=== PATIENT | female | born 1935 | race Caucasian/White ===

== ENCOUNTER 2017-07-30 01:08 | Inpatient (IN) | payer MEDICARE, OTHER ==
[2017-07-30] VITALS (14 sets, daily range): BP systolic 96–149; BP diastolic 56–79; PULSE 69–113; RESP 16–20; TEMP 97.6–98.3; O2SAT 95–100
[~2017-07-30 01:08] MED LIST: 1-ME1LIQ PO; BP MED; FLUC100T41 PO; GLUCTAB PO; HYDR-3580 PO; LIDO5T TOP; METF500 PO; METHO500 PO; PLAV75TA PO; PYRI200T4 PO; SULF1TAB47 PO; Z.0.UNKNOWN
[2017-07-30] MEDS ORDERED: IODIXANOL 320 MG/ML 10 ML VIAL (for Rad CT) IVCONTRAST ONE (01:09)
--- NOTE | 2017-07-30 02:46 | PD ---
HPI Chief Complaint: General Weakness Time Seen by Provider: 02:41 Travel History International Travel<30 days: No Contact w/Intl Traveler<30days: No Traveled to known affect area: No History of Present Illness HPI The patient is a 81-year-old female who presents to the emergency department via EMS for altered mental status. According EMS the patient was at home during the day, and her trailer, when family noticed that she was sleeping more than normal. He also stated the patient had fallen several times and had bruising to the left foot, right ankle, mid right back. EMS states that family noticed that the patient had an altered mental status. Upon arrival the patient denies any complaints, however, she is only oriented to person and location, not month, year, or law firm partner. She denies any complaints upon arrival. However, she is a poor and somewhat limited historian. PFSH Past Medical History Medical History: Unable to Obtain Blood Disorders: No Anxiety: Yes Depression: No Cancer: No Cardiovascular Problems: No Diabetes: No Diminished Hearing: No Genitourinary: No Immune Disorder: No Musculoskeletal: Yes (BACK) Psychiatric: Yes Reproductive: No Respiratory: No Immunizations Current: Yes : 2 Para: 2 Past Surgical History Hysterectomy: Yes (PARTIAL 1960?) Tonsillectomy: Yes Other Surgery: Yes (CYST REMOVED BILAT BREAST) Social History Alcohol Use: No Tobacco Use: No Substance Use: No Allergies-Medications (Allergen,Severity, Reaction): Coded Allergies: metronidazole (Unverified Allergy, Severe, Rash, 07/30/17) Sulfa (Sulfonamide Antibiotics) (Unverified Allergy, Mild, rash, 07/30/17) amoxicillin (Unverified Allergy, Mild, rash, 07/30/17) Reported Meds & Prescriptions Reported Meds & Active Scripts Active Reported Biotin 5 Mg Cap 5 Mg PO Levothyroxine (Levothyroxine Sodium) 50 Mcg Tab 50 Mcg PO DAILY Miralax Powder (Polyethylene Glycol 3350 Powder) 17 Gm Powd 17 Gm PO DAILY Mix and dissolve one measuring cap-ful (17 grams) in water or juice. Citalopram (Citalopram Hydrobromide) 40 Mg Tab 40 Mg PO DAILY Hydrocodone-Acetaminophen 10-325 mg Tab 1 Tab PO Q6H PRN Clopidogrel (Clopidogrel Bisulfate) 75 Mg Tab 75 Mg PO DAILY Gabapentin 300 Mg Cap 300 Mg PO BID Metformin (Metformin HCl) 500 Mg Tab 500 Mg PO DAILY With a meal Metoprolol Tartrate 100 Mg Tab 100 Mg PO DAILY Amlodipine (Amlodipine Besylate) 10 Mg Tab 10 Mg PO DAILY Aspirin 81 Mg Chew 81 Mg CHEW DAILY Review of Systems ROS Limitations: Clinical Condition, Altered Mental Status Except as stated in HPI: all other systems reviewed are Neg Cardiovascular: No: Chest Pain or Discomfort Respiratory: No: Shortness of Breath Gastrointestinal: No: Nausea, Vomiting, Abdominal Pain Genitourinary: No: Nocturia Musculoskeletal: Positive: Weakness Neurologic: Positive: Change in Mentation Physical Exam Narrative GENERAL: Awake, alert, pleasant 81-year-old female who appears her stated age but is a poor historian. SKIN: Tenting noted to the skin. Old appearing chronic skin changes to lower extremities noted. Ecchymosis noted left foot and edema noted to the right lateral malleus. HEAD: Atraumatic. Normocephalic. EYES: Pupils equal and round. No scleral icterus. No injection or drainage. ENT: No nasal bleeding or discharge. Dry mucous membranes. Upper dentures in place. NECK: Trachea midline. No JVD. CARDIOVASCULAR: Regular, tachycardic with a heart rate of 1:15. RESPIRATORY: No accessory muscle use. Clear to auscultation. Breath sounds equal bilaterally. GASTROINTESTINAL: Abdomen soft, non-tender, nondistended. No rebound tenderness. MUSCULOSKELETAL: Ecchymosis noted over the lateral distal left foot. Ecchymosis and edema noted of the right lateral malleus. Chronic skin changes noted to the anterior aspect the lower extremity is bilateral. Back: Ecchymosis noted to the right mid back and flank. NEUROLOGICAL: Awake, eyes: Open, answers questions, but is only oriented to person and place, not current month, year, or law firm partner. Follow simple commands. PSYCHIATRIC: Appears confused. Data Data Last Documented VS Vital Signs Date Time Temp Pulse Resp B/P (MAP) Pulse Ox O2 Delivery O2 Flow Rate FiO2 07/30/17 02:41 113 16 113/72 (86) 100 Room Air Orders Orders Chest, Single Ap (07/30/17 ) Foot, Limited (2vws) (07/30/17 ) Ankle, Limited (Ap&Lat) (07/30/17 ) Ct Brain W/O Iv Contrast(Rout) (07/30/17 ) Ct Abd/Pel W Iv Contrast(Rout) (07/30/17 ) Lactic Acid (07/30/17 01:24) Complete Blood Count With Diff (07/30/17 01:24) Alcohol (Ethanol) (07/30/17 01:24) Creatine Kinase (Cpk) (07/30/17 01:24) Comprehensive Metabolic Panel (07/30/17 01:24) Lipase (07/30/17 01:24) Troponin I (07/30/17 01:24) B-Type Natriuretic Peptide (07/30/17 01:24) Urinalysis - C+S If Indicated (07/30/17 01:24) CKMB (07/30/17 01:24) CKMB% (07/30/17 01:24) Blood Culture (07/30/17 01:24) Blood Culture (07/30/17 01:24) Splinting (07/30/17 ) Iodixanol 320 Inj (Rad Ct) (Visipaque 32 (07/30/17 01:09) Admit Order (Ed Use Only) (07/30/17 04:12) Aspirin Chew (Aspirin Chew) (07/30/17 04:15) Labs Laboratory Tests Test 07/30/17 01:24 07/30/17 02:08 White Blood Count 11.0 TH/MM3 Red Blood Count 4.19 MIL/MM3 Hemoglobin 13.0 GM/DL Hematocrit 37.5 % Mean Corpuscular Volume 89.3 FL Mean Corpuscular Hemoglobin 31.0 PG Mean Corpuscular Hemoglobin Concent 34.7 % Red Cell Distribution Width 16.6 % Platelet Count 256 TH/MM3 Mean Platelet Volume 7.1 FL Neutrophils (%) (Auto) 79.3 % Lymphocytes (%) (Auto) 12.1 % Monocytes (%) (Auto) 8.2 % Eosinophils (%) (Auto) 0.2 % Basophils (%) (Auto) 0.2 % Neutrophils # (Auto) 8.7 TH/MM3 Lymphocytes # (Auto) 1.3 TH/MM3 Monocytes # (Auto) 0.9 TH/MM3 Eosinophils # (Auto) 0.0 TH/MM3 Basophils # (Auto) 0.0 TH/MM3 CBC Comment DIFF FINAL Differential Comment Blood Urea Nitrogen 38 MG/DL Creatinine 1.38 MG/DL Random Glucose 108 MG/DL Total Protein 6.6 GM/DL Albumin 3.2 GM/DL Calcium Level 8.4 MG/DL Alkaline Phosphatase 83 U/L Aspartate Amino Transf (AST/SGOT) 32 U/L Alanine Aminotransferase (ALT/SGPT) 19 U/L Total Bilirubin 0.9 MG/DL Sodium Level 121 MEQ/L Potassium Level 4.0 MEQ/L Chloride Level 83 MEQ/L Carbon Dioxide Level 20.7 MEQ/L Anion Gap 17 MEQ/L Estimat Glomerular Filtration Rate 37 ML/MIN Lactic Acid Level 0.8 mmol/L Total Creatine Kinase 210 U/L Creatine Kinase MB 8.6 NG/ML Creatine Kinase MB % 4.1 % Troponin I 0.22 NG/ML B-Type Natriuretic Peptide 822 PG/ML Lipase 135 U/L Ethyl Alcohol Level LESS THAN 3 MG/DL Urine Color YELLOW Urine Turbidity CLEAR Urine pH 5.5 Urine Specific [place] 1.015 Urine Protein 30 mg/dL Urine Glucose (UA) NEG mg/dL Urine Ketones 10 mg/dL Urine Occult Blood NEG Urine Nitrite NEG Urine Bilirubin NEG Urine Urobilinogen LESS THAN 2.0 MG/DL Urine Leukocyte Esterase NEG Urine RBC 1 /hpf Urine WBC 2 /hpf Urine Squamous Epithelial Cells <1 /hpf Urine Hyaline Casts 1 /lpf Urine Mucus FEW /lpf Microscopic Urinalysis Comment CATH-CULT NOT IND MDM Medical Decision Making Medical Screen Exam Complete: Yes Emergency Medical Condition: Yes Medical Record Reviewed: Yes Interpretation(s) The patient's EKG reveals Q waves in lead 2, 3, and aVF. The patient also has Q waves in lead V2 MB [address] elevations noted in V2 and V3. Laboratory Tests Test 07/30/17 01:24 07/30/17 02:08 White Blood Count 11.0 TH/MM3 Red Blood Count 4.19 MIL/MM3 Hemoglobin 13.0 GM/DL Hematocrit 37.5 % Mean Corpuscular Volume 89.3 FL Mean Corpuscular Hemoglobin 31.0 PG Mean Corpuscular Hemoglobin Concent 34.7 % Red Cell Distribution Width 16.6 % Platelet Count 256 TH/MM3 Mean Platelet Volume 7.1 FL Neutrophils (%) (Auto) 79.3 % Lymphocytes (%) (Auto) 12.1 % Monocytes (%) (Auto) 8.2 % Eosinophils (%) (Auto) 0.2 % Basophils (%) (Auto) 0.2 % Neutrophils # (Auto) 8.7 TH/MM3 Lymphocytes # (Auto) 1.3 TH/MM3 Monocytes # (Auto) 0.9 TH/MM3 Eosinophils # (Auto) 0.0 TH/MM3 Basophils # (Auto) 0.0 TH/MM3 CBC Comment DIFF FINAL Differential Comment Blood Urea Nitrogen 38 MG/DL Creatinine 1.38 MG/DL Random Glucose 108 MG/DL Total Protein 6.6 GM/DL Albumin 3.2 GM/DL Calcium Level 8.4 MG/DL Alkaline Phosphatase 83 U/L Aspartate Amino Transf (AST/SGOT) 32 U/L Alanine Aminotransferase (ALT/SGPT) 19 U/L Total Bilirubin 0.9 MG/DL Sodium Level 121 MEQ/L Potassium Level 4.0 MEQ/L Chloride Level 83 MEQ/L Carbon Dioxide Level 20.7 MEQ/L Anion Gap 17 MEQ/L Estimat Glomerular Filtration Rate 37 ML/MIN Lactic Acid Level 0.8 mmol/L Total Creatine Kinase 210 U/L Creatine Kinase MB 8.6 NG/ML Creatine Kinase MB % 4.1 % Troponin I 0.22 NG/ML B-Type Natriuretic Peptide 822 PG/ML Lipase 135 U/L Ethyl Alcohol Level LESS THAN 3 MG/DL Urine Color YELLOW Urine Turbidity CLEAR Urine pH 5.5 Urine Specific [place] 1.015 Urine Protein 30 mg/dL Urine Glucose (UA) NEG mg/dL Urine Ketones 10 mg/dL Urine Occult Blood NEG Urine Nitrite NEG Urine Bilirubin NEG Urine Urobilinogen LESS THAN 2.0 MG/DL Urine Leukocyte Esterase NEG Urine RBC 1 /hpf Urine WBC 2 /hpf Urine Squamous Epithelial Cells <1 /hpf Urine Hyaline Casts 1 /lpf Urine Mucus FEW /lpf Microscopic Urinalysis Comment CATH-CULT NOT IND CT the brain reveals no acute hemorrhage, mass, or evidence of infarction. Atrophy and chronic small vessel ischemic change. CT of the abdomen and pelvis reveals no acute visceral injury. Healing fractures of the anterior right acetabulum and right inferior pubic rami. X-ray left foot reveals negative limited to the exam. X-ray right ankle reveals subtle nondisplaced fracture through the distal fibula. Chest x-ray reveals no acute disease. Differential Diagnosis Differential diagnosis includes STEMI, post STEMI, rhabdomyolysis, dehydration, subdural hemorrhage, ankle fracture, foot fracture, intra-abdominal injury, delirium, medication side effect, acute kidney injury, rhabdomyolysis. Narrative Course IV was established, labs are drawn and sent, and the patient was placed on cardiac telemetry monitoring and continuous pulse oximetry monitoring. EKG was ordered and interpreted. The patient had ST elevations noted in V2 and V3 with Q waves in lead 2, 3, aVF, V2, and V3. I discussed the EKG with the on-call bag end sewer, Dr. Hernandez, at 1:38 AM. After discussion it appears the patient had an MA, subacute, possibly the last several weeks. She is currently chest pain-free and has evidence of trauma, therefore, will undergo workup for possible bleeding intra-abdominally and intracranially. After discussion it was agreed the patient would receive aspirin if the workup is negative, but we will hold anticoagulants including Lovenox and heparin. The patient's sodium is low 121. Troponin was elevated 0.22. Creatinine is mildly elevated. CT the brain is unremarkable for any acute hemorrhage. CT the abdomen and pelvis reveals healing right acetabulum and pubic gram I fractures but no acute intra- abdominal bleed. Therefore, the patient was administered aspirin orally. X- ray left foot is negative. Chest x-rays unremarkable. The patient appears to have possibly a subacute cardiac event, may benefit from cardiac evaluation after patient has been stabilized. Sodium was low at 121 and patient is altered , therefore, patient will go to the intensive care unit overnight. I discussed the patient with Dr. Goldman the care coordination manager who agrees with admission. Critical Care Narrative Aggregate critical care time was 35 minutes. Time to perform other separately billable procedures was not included in the critical care time. My time did not include minutes spent treating any other patients simultaneously or on activities that did not directly contribute to the patient's treatment. The services I provided to this patient were to treat and/or prevent clinically significant deterioration that could result in: STEMI, cardiac ischemia, electrolyte abnormality. I provided critical care services requiring my management, as noted below: Chart data review, documentation time, medication orders and management, vital sign assessments/reviewing monitor data, ordering and reviewing lab tests, ordering and interpreting/reviewing x-rays and diagnostic studies, care of the patient and discussion of the patient with the admitting physicians. Physician Communication Physician Communication I discussed the patient with Dr. Goldman who agrees with admission. Diagnosis Primary Impression: NSTEMI (non-ST elevated myocardial infarction) Additional Impressions: Hyponatremia Fracture of right ankle, lateral malleolus Qualified Codes: S82.64XA - Nondisplaced fracture of lateral malleolus of right fibula, initial encounter for closed fracture Acute kidney injury Admitting Information Admitting Physician Requests: Admit Condition: Serious Jude Bryant MD Jul 30, 2017 02:46
[2017-07-30 02:49] LABS: AUTOMATED NEUTROPHIL # 8.7 TH/MM3 (1.8-7.7); BASOPHIL % 0.2 % (0.0-2.0); EOSINOPHIL % 0.2 % (0.0-4.0); HEMATOCRIT 37.5 % (35.0-46.0); LYMPH % 12.1 % (9.0-44.0); LYMPHOCYTE # 1.3 TH/MM3 (1.0-4.8); MEAN CELL VOLUME 89.3 FL (80.0-100.0); MEAN CORPUSCULAR HGB CONC 34.7 % (32.0-36.0); MEAN PLATELET VOLUME 7.1 FL (7.0-11.0); MONO % 8.2 % (0.0-8.0); MONOCYTE # 0.9 TH/MM3 (0-0.9); NEUT % 79.3 % (16.0-70.0); PLATELET COUNT 256 TH/MM3 (150-450); RED BLOOD COUNT 4.19 MIL/MM3 (4.00-5.30); RED CELL DISTRIBUTION WIDTH 16.6 % (11.6-17.2)
[2017-07-30 02:52] LABS: ALBUMIN 3.2 GM/DL (3.4-5.0); ALKALINE PHOSPHATASE 83 U/L (45-117); ALT (GPT) 19 U/L (10-53); AST (GOT) 32 U/L (15-37); BICARBONATE 20.7 MEQ/L (21.0-32.0); BLOOD UREA NITROGEN 38 MG/DL (7-18); CALCIUM 8.4 MG/DL (8.5-10.1); CHLORIDE 83 MEQ/L (98-107); CREATININE 1.38 MG/DL (0.50-1.00); GLOMERULAR FILTRATION RATE 37 ML/MIN (>89); GLUCOSE,RANDOM 108 MG/DL (74-106); TOTAL BILIRUBIN ADULT 0.9 MG/DL (0.2-1.0); TOTAL PROTEIN 6.6 GM/DL (6.4-8.2); TROPONIN I 0.22 NG/ML (0.02-0.05)
[2017-07-30 02:55] LABS: SODIUM (NA) 121 MEQ/L (136-145)
--- NOTE | 2017-07-30 02:58 | RADRPT ---
EXAM DATE/TIME: 07/30/2017 02:05 [facility] COMPARISON: No previous studies available for comparison. INDICATIONS : Patient with altered mental status who has possibly fallen because of bruising to posterior right ant st. MEDICAL HISTORY : None. SURGICAL HISTORY : None. ENCOUNTER: Initial ACUITY: 1 day PAIN SCORE: Non-responsive. LOCATION: Right chest FINDINGS: A single view of the chest demonstrates the lungs to be symmetrically aerated without evidence of mas s, infiltrate or effusion. The cardiomediastinal contours are unremarkable. Atherosclerotic calcific ations are present in the aorta. There are stimulator leads project over the mid thoracic spine. Ther e is a moderate compression fracture deformity also noted in the mid thoracic spine. Osseous structur es are intact. CONCLUSION: No acute disease. Dayne Jordan MD on July 30, 2017 at 2:55 Board Certified Radiologist. This report was verified electronically.
--- NOTE | 2017-07-30 03:00 | RADRPT ---
EXAM DATE/TIME: 07/30/2017 02:11 [facility] COMPARISON: No previous studies available for comparison. INDICATIONS : Patient with altered mental status who has possibly fallen because of bruising to right ankle. MEDICAL HISTORY : None. SURGICAL HISTORY : None. ENCOUNTER: Initial ACUITY: 1 day PAIN SCORE: Non-responsive. LOCATION: Right ankle FINDINGS: Limited AP and lateral views of the left ankle were obtained and not a standard 3 view trauma series limiting the sensitivity. There is a subtle nondisplaced fracture through the distal fibula beginning just below above the level of the ankle mortise. There is diffuse osteopenia. The ankle mortise is i ntact. There is a small spur off the inferior calcaneus. There is soft tissue swelling over the later al malleolus. CONCLUSION: 1. Subtle nondisplaced fracture through the distal fibula. Dayne Jordan MD on July 30, 2017 at 2:56 Board Certified Radiologist. This report was verified electronically.
--- NOTE | 2017-07-30 03:02 | RADRPT ---
EXAM DATE/TIME: 07/30/2017 02:13 [facility] COMPARISON: No previous studies available for comparison. INDICATIONS : Patient with altered mental status who has possibly fallen because of bruising to left foot and leg. MEDICAL HISTORY : None. SURGICAL HISTORY : None. ENCOUNTER: Initial ACUITY: 1 day PAIN SCORE: Non-responsive. LOCATION: Left foot FINDINGS: A limited two-view examination of the left foot was obtained and not a standard 3 view trauma series limiting the sensitivity. There is diffuse osteopenia with no definite acute fracture or malalignment . There is a small spur off the inferior calcaneus. No focal soft tissue abnormality is identified. M ild osteoarthritic changes present. CONCLUSION: Negative limited two-view exam . Dayne Jordan MD on July 30, 2017 at 2:58 Board Certified Radiologist. This report was verified electronically.
[2017-07-30 03:24] LABS: BILIRUBIN, URINE NEG (NEG); BLOOD, URINE NEG (NEG); GLUCOSE,URINE NEG (NEG); HYALINE CAST, URINE 1 /lpf (RARE); KETONE, URINE 10 mg/dL (NEG); MUCUS URINE FEW /lpf (OCC); NITRITE,URINE NEG (NEG); PH, URINE 5.5 (5.0-8.5); SQUAMOUS EPITHELIAL CELL URINE <1 /hpf (0-5); URINE COLOR YELLOW (YELLW/STRAW); URINE LEUKOCYTE ESTERASE NEG (NEG)
[2017-07-30] MEDS ORDERED: AMLO10TA2 PO (03:38)
[2017-07-30] MEDS ORDERED: CITA40TA4 PO (03:38)
[2017-07-30] MEDS ORDERED: LEVO50TA4 PO (03:38)
[2017-07-30] MEDS ORDERED: CLOP75TA PO (03:38)
[2017-07-30] MEDS ORDERED: BIOTCAP PO (03:38)
[2017-07-30] MEDS ORDERED: METO100T PO (03:38)
[2017-07-30] MEDS ORDERED: ASPI-516 CHEW (03:38)
[2017-07-30] MEDS ORDERED: GABA300C5 PO (03:38)
[2017-07-30] MEDS ORDERED: MIRA3350 PO (03:38)
[2017-07-30] MEDS ORDERED: HYDR-3583 PO (03:38)
[2017-07-30] MEDS ORDERED: METF500T PO (03:38)
--- NOTE | 2017-07-30 03:47 | RADRPT ---
EXAM DATE/TIME: 07/30/2017 03:20 [facility] COMPARISON: No previous studies available for comparison. INDICATIONS : Altered mental status. RADIATION DOSE: 48.43 CTDIvol (mGy) MEDICAL HISTORY : Cerebrovascular disease. Cardiovascular disease SURGICAL HISTORY : Coronary artery stent. Appendectomy.Hysterectomy. ENCOUNTER: Initial ACUITY: 1 day PAIN SCALE: 0/10 LOCATION: cranial TECHNIQUE: Multiple contiguous axial images were obtained of the head. Using automated exposure control and adj ustment of the mA and/or kV according to patient size, radiation dose was kept as low as reasonably a chievable to obtain optimal diagnostic quality images. DICOM format image data is available electro nically for review and comparison. FINDINGS: CEREBRUM: The ventricles are normal for with moderate atrophy and extensive chronic small vessel ischemic lane e. No evidence of midline shift, mass lesion, hemorrhage or acute infarction. No extra-axial fluid c ollections are seen. POSTERIOR FOSSA: The cerebellum and brainstem are intact. The 4th ventricle is midline. The cerebellopontine angle i s unremarkable. EXTRACRANIAL: The visualized portion of the orbits is intact. SKULL: The calvaria is intact. No evidence of skull fracture. CONCLUSION: 1. No acute hemorrhage, mass or evidence of infarction. 2. Atrophy and chronic small vessel ischemic change. Dayne Jordan MD on July 30, 2017 at 3:43 Board Certified Radiologist. This report was verified electronically.
--- NOTE | 2017-07-30 03:52 | RADRPT ---
EXAM DATE/TIME: 07/30/2017 03:24 [facility] COMPARISON: No previous studies available for comparison. INDICATIONS : Fall. Left sided abdomen pain. IV CONTRAST: 50 cc Visipaque (iodixanol) IV ORAL CONTRAST: No oral contrast ingested. RADIATION DOSE: 4.50 CTDIvol (mGy) MEDICAL HISTORY : Cardiovascular disease. Cerebrovascular disease. SURGICAL HISTORY : Coronary artery stent. Appendectomy.Hysterectomy. ENCOUNTER: Initial ACUITY: 1 day PAIN SCALE: 0/10 LOCATION: Left abdomen TECHNIQUE: Volumetric scanning of the abdomen and pelvis was performed. Using automated exposure control and ad justment of the mA and/or kV according to patient size, radiation dose was kept as low as reasonably achievable to obtain optimal diagnostic quality images. DICOM format image data is available electro nically for review and comparison. FINDINGS: LOWER LUNGS: The visualized lower lungs are clear. LIVER: Homogeneous density without lesion. There is no dilation of the biliary tree. No calcified gallston es. The gallbladder is unremarkable in appearance. SPLEEN: Normal size without lesion. PANCREAS: Within normal limits. KIDNEYS: Normal in size and shape. There is no mass, stone or hydronephrosis. ADRENAL GLANDS: Within normal limits. VASCULAR: Atherosclerotic changes are noted with dilatation and calcification. There is no focal aneurysm. BOWEL/MESENTERY: The stomach, small bowel, and colon demonstrate no acute abnormality. There is no free intraperitone al air or fluid. ABDOMINAL WALL: Within normal limits. RETROPERITONEUM: There is no lymphadenopathy. BLADDER: No wall thickening or mass. REPRODUCTIVE: Within normal limits. INGUINAL: There is no lymphadenopathy or hernia. MUSCULOSKELETAL: Osteopenia, degenerative change and mild scoliosis are present. There is a healing fracture deformity of the right inferior pubic rami. There is sclerosis and deformity of the anterior right acetabulum. A neuromuscular stimulation device is present with leads in the mid thoracic spine. CONCLUSION: 1. No acute visceral injury. 2. Healing fractures of the anterior right acetabulum and right inferior pubic rami. Dayne Jordan MD on July 30, 2017 at 3:44 Board Certified Radiologist. This report was verified electronically.
[2017-07-30] MEDS ORDERED: ASPIRIN 81 MG CHEW TAB CHEW ONE (04:15)
[2017-07-30] MEDS ORDERED: ACETAMINOPHEN/HYDROcodone 325 MG/10 MG TAB PO PRN (05:30)
[2017-07-30] MEDS ORDERED: MAGNESIUM HYDROXIDE SUSP 30 ML CUP PO PRN (05:30)
[2017-07-30] MEDS ORDERED: LACTULOSE SYRUP 20 GM/30 ML CUP PO PRN (05:30)
[2017-07-30] MEDS ORDERED: ONDANSETRON HCL 4 MG/2 ML VIAL IV PUSH PRN (05:30)
[2017-07-30] MEDS ORDERED: ACETAMINOPHEN 325 MG TAB PO PRN (05:30)
[2017-07-30] MEDS ORDERED: BISACODYL 10 MG SUPP RECTAL PRN (05:30)
[2017-07-30] MEDS ORDERED: CHLORHEXIDINE GLUCONATE 2 % 1 PACK (2 CLOTHS) TOP PRN (05:30)
[2017-07-30] MEDS ORDERED: RESP: ALBUTEROL 2.5 MG/IPRATROPIUM 0.5 MG NEB (PRN) INH (05:30)
[2017-07-30] MEDS ORDERED: HEPARIN-D5W 25,000 U/250 ML 250 ML IV PRN (05:30)
[2017-07-30] MEDS ORDERED: SODIUM CHLORIDE 0.9% FLUSH 10 ML FLUSH IV FLUSH PRN (05:30)
[2017-07-30] MEDS ORDERED: MISCELLANEOUS NURSING INFORMATION XX SCH (05:30)
[2017-07-30] MEDS ORDERED: SENNOSIDES 8.6 MG TAB PO PRN (05:30)
[2017-07-30] MEDS ORDERED: HEPARIN SODIUM - IV 10,000 UNITS/10 ML VIAL IV PUSH ONE (05:30)
[2017-07-30] MEDS ORDERED: TEMAZEPAM 15 MG CAP PO PRN (05:30)
--- NOTE | 2017-07-30 05:56 | HHI.HP ---
HPI Service Critical Care Medicine Primary Care Physician No Primary Care Physician Admission Diagnosis NSTEMI, hyponatremia, right ankle fracture, altered mental status Diagnosis: Travel History International Travel<30 Days: No Contact w/Intl Traveler <30 Da: No Traveled to Known Affected Are: No History of Present Illness 81-year-old female presents for altered mental status. According EMS the patient was at home during the day, and her trailer, when family noticed that she was sleeping more than normal. The patient had also fallen several times and had bruising to the left foot, right ankle, mid right back. EMS states that family noticed that the patient had an altered mental status. Upon arrival the patient denied any complaints, however, she is only oriented to person and location, not month, year, or brokerage office manager. She is a poor and somewhat limited historian. The patient had ST elevations noted in V2 and V3 with Q waves in lead 2, 3, aVF, V2, and V3. Dr. Bryant from emergency department discussed the EKG with the on-call family assessment worker, Dr. Hernandez. Per chart documentation the patient had an [place], subacute, possibly the last several weeks. She is currently chest pain-free and has evidence of trauma, and it was agreed the patient would receive aspirin but we will hold anticoagulants including Lovenox and heparin. Review of Systems ROS Limitations: Poor Historian Constitutional: DENIES: Diaphoretic episodes, Fatigue, Fever, Weight gain, Weight loss, Chills, Dizziness, Change in appetite, Night Sweats Endocrine: DENIES: Abnorml menstrual pattern, Heat/cold intolerance, Polydipsia , Polyuria, Polyphagia Eyes: DENIES: Blurred vision, Diplopia, Eye inflammation, Eye pain, Vision loss , Photosensitivity, Double Vision Ears, nose, mouth, throat: DENIES: Tinnitus, Hearing loss, Vertigo, Nasal discharge, Oral lesions, Throat pain, Hoarseness, Ear Pain, Running Nose, Epistaxis, Sinus Pain, Toothache, Odynophagia Respiratory: DENIES: Apneas, Cough, Snoring, Wheezing, Hemoptysis, Sputum production, Shortness of breath Cardiovascular: DENIES: Chest pain, Palpitations, Syncope, Dyspnea on Exertion , PND, Lower Extremity Edema, Orthopnea, Claudication Gastrointestinal: DENIES: Abdominal pain, Black stools, Bloody stools, Constipation, Diarrhea, Nausea, Vomiting, Difficulty Swallowing, Anorexia Genitourinary: DENIES: Abnormal vaginal bleeding, Dysmenorrhea, Dyspareunia, Sexual dysfunction, Urinary frequency, Urinary incontinence, Urgency, Hematuria , Dysuria, Nocturia, Vaginal discharge Musculoskeletal: COMPLAINS OF: Joint pain, DENIES: Muscle aches, Stiffness, Joint Swelling, Back pain, Neck pain Integumentary: DENIES: Abnormal pigmentation, Pruritus, Rash, Nail changes, Breast masses, Breast skin changes, Nipple discharge Hematologic/lymphatic: DENIES: Bruising, Lymphadenopathy Immunologic/allergic: DENIES: Eczema, Urticaria Neurologic: COMPLAINS OF: Abnormal gait, DENIES: Headache, Localized weakness, Paresthesias, Seizures, Speech Problems, Tremor, Poor Balance Psychiatric: DENIES: Anxiety, Confusion, Mood changes, Depression, Hallucinations, Agitation, Suicidal Ideation, Homicidal Ideation, Delusions Past Family Social History Allergies: Coded Allergies: metronidazole (Unverified Allergy, Severe, Rash, 07/30/17) Sulfa (Sulfonamide Antibiotics) (Unverified Allergy, Mild, rash, 07/30/17) amoxicillin (Unverified Allergy, Mild, rash, 07/30/17) Past Medical History Intractable back pain, compression deformities T6, T11, T12 and L1, L5. Narcotic abuse. Multiple admission for narcotic overdose. Depression. Urinary tract infection, positive for yeast. Hypertension, appears to be stable. Diabetes type 2. Degenerative disk disease. Previous falls. Previous fracture ankle. Past Surgical History Bladder suspension. Partial hysterectomy. Tonsillectomy. Implantation of neuro stimulator 06/2011. She had cysts removed from her breasts. Reported Medications Reported Meds & Active Scripts Active Reported Biotin 5 Mg Cap 5 Mg PO Levothyroxine (Levothyroxine Sodium) 50 Mcg Tab 50 Mcg PO DAILY Miralax Powder (Polyethylene Glycol 3350 Powder) 17 Gm Powd 17 Gm PO DAILY Mix and dissolve one measuring cap-ful (17 grams) in water or juice. Citalopram (Citalopram Hydrobromide) 40 Mg Tab 40 Mg PO DAILY Hydrocodone-Acetaminophen 10-325 mg Tab 1 Tab PO Q6H PRN Gabapentin 300 Mg Cap 300 Mg PO BID Metformin (Metformin HCl) 500 Mg Tab 500 Mg PO DAILY With a meal Metoprolol Tartrate 100 Mg Tab 100 Mg PO DAILY Amlodipine (Amlodipine Besylate) 10 Mg Tab 10 Mg PO DAILY Aspirin 81 Mg Chew 81 Mg CHEW DAILY Active Ordered Medications Current Medications Medications (Trade) Dose Ordered Sig/Rachel Route PRN Reason Start Time Stop Time Status Last Admin Dose Admin Amlodipine Besylate (Norvasc) 10 mg DAILY PO 07/30/17 09:00 UNV Aspirin (Aspirin Chew) 81 mg DAILY CHEW 07/30/17 09:00 UNV Citalopram Hydrobromide (CeleXA) 40 mg DAILY PO 07/30/17 09:00 UNV Clopidogrel Bisulfate (Plavix) 75 mg DAILY PO 07/30/17 09:00 UNV Gabapentin (Neurontin) 300 mg BID PO 07/30/17 09:00 UNV Acetaminophen/ Hydrocodone Bitart (Amonate 10-325 Mg) 1 tab Q6H PRN PO PAIN 07/30/17 05:30 UNV Levothyroxine Sodium (Synthroid) 50 mcg DAILY PO 07/30/17 09:00 UNV Metoprolol Tartrate (Lopressor) 100 mg DAILY PO 07/30/17 09:00 UNV Sodium Chloride (NS Flush) 2 ml UNSCH PRN IV FLUSH FLUSH AFTER USING IV ACCESS 07/30/17 05:30 UNV Sodium Chloride (NS Flush) 2 ml BID IV FLUSH 07/30/17 09:00 UNV Albuterol/ Ipratropium (Duoneb Neb) 1 ampule Q2HR NEB PRN INH WHEEZING 07/30/17 05:30 UNV Miscellaneous Information 1 [id number] XX 07/30/17 05:30 UNV Family History Mother had diabetes and father was an alcoholic and from complications from alcohol use. Social History Patient is , she has one daughter and one child who . She was a half a pack a day smoker for many years. No alcohol use. Physical Exam Vital Signs Vital Signs Date Time Temp Pulse Resp B/P (MAP) Pulse Ox O2 Delivery O2 Flow Rate FiO2 07/30/17 02:41 113 16 113/72 (86) 100 Room Air Physical Exam GENERAL: Well-nourished, well-developed patient. SKIN: Warm and dry. HEAD: Normocephalic. EYES: No scleral icterus. No injection or drainage. NECK: Supple, trachea midline. No JVD or lymphadenopathy. CARDIOVASCULAR: Regular rate and rhythm without murmurs, gallops, or rubs. RESPIRATORY: Breath sounds equal bilaterally. No accessory muscle use. GASTROINTESTINAL: Abdomen soft, non-tender, nondistended. MUSCULOSKELETAL: Ecchymosis noted over the lateral distal left foot. Ecchymosis and edema noted of the right lateral malleus. Chronic skin changes noted to the anterior aspect the lower extremity is bilateral. Back: Ecchymosis noted to the right mid back and flank. NEUROLOGICAL: Awake, eyes: Open, answers questions, but is only oriented to person and place, not current month, year, or brokerage office manager. Follow simple commands. Laboratory Laboratory Tests Test 07/30/17 01:24 07/30/17 02:08 White Blood Count 11.0 Red Blood Count 4.19 Hemoglobin 13.0 Hematocrit 37.5 Mean Corpuscular Volume 89.3 Mean Corpuscular Hemoglobin 31.0 Mean Corpuscular Hemoglobin Concent 34.7 Red Cell Distribution Width 16.6 Platelet Count 256 Mean Platelet Volume 7.1 Neutrophils (%) (Auto) 79.3 Lymphocytes (%) (Auto) 12.1 Monocytes (%) (Auto) 8.2 Eosinophils (%) (Auto) 0.2 Basophils (%) (Auto) 0.2 Neutrophils # (Auto) 8.7 Lymphocytes # (Auto) 1.3 Monocytes # (Auto) 0.9 Eosinophils # (Auto) 0.0 Basophils # (Auto) 0.0 CBC Comment DIFF FINAL Differential Comment Blood Urea Nitrogen 38 Creatinine 1.38 Random Glucose 108 Total Protein 6.6 Albumin 3.2 Calcium Level 8.4 Alkaline Phosphatase 83 Aspartate Amino Transf (AST/SGOT) 32 Alanine Aminotransferase (ALT/SGPT) 19 Total Bilirubin 0.9 Sodium Level 121 Potassium Level 4.0 Chloride Level 83 Carbon Dioxide Level 20.7 Anion Gap 17 Estimat Glomerular Filtration Rate 37 Lactic Acid Level 0.8 Total Creatine Kinase 210 Creatine Kinase MB 8.6 Creatine Kinase MB % 4.1 Troponin I 0.22 B-Type Natriuretic Peptide 822 Lipase 135 Ethyl Alcohol Level LESS THAN 3 Urine Color YELLOW Urine Turbidity CLEAR Urine pH 5.5 Urine Specific Blessing 1.015 Urine Protein 30 Urine Glucose (UA) NEG Urine Ketones 10 Urine Occult Blood NEG Urine Nitrite NEG Urine Bilirubin NEG Urine Urobilinogen LESS THAN 2.0 Urine Leukocyte Esterase NEG Urine RBC 1 Urine WBC 2 Urine Squamous Epithelial Cells <1 Urine Hyaline Casts 1 Urine Mucus FEW Microscopic Urinalysis Comment CATH-CULT NOT IND Date/Time Source Procedure Growth Status 07/30/17 01:30 Blood Peripheral Aerobic Blood Culture Pending Received 3 01:30 Blood Peripheral Anaerobic Blood Culture Pending Received Result Diagram: 07/30/174 07/30/17 0124 Caprini VTE Risk Assessment Caprini VTE Risk Assessment: Mod/High Risk (score >= 2) Caprini Risk Assessment Model Point Value = 1 Point Value = 2 Point Value = 3 Point Value = 5 Age 41-60 Minor surgery BMI > 25 kg/m2 Swollen legs Varicose veins or History of unexplained or recurrent spontaneous Oral contraceptives or hormone replacement Sepsis (< 1 month) Serious lung disease, including pneumonia (< 1 month) Abnormal pulmonary function Acute myocardial infarction Congestive heart failure (< 1 month) History of inflammatory bowel disease Medical patient at bed rest Age 61-74 Arthroscopic surgery Major open surgery (> 45 min) Laparoscopic surgery (> 45 min) Malignancy Confined to bed (> 72 hours) Immobilizing plaster cast Central venous access Age >= 75 History of VTE Family history of VTE Factor V Leiden Prothrombin [id number] Lupus anticoagulant Anticardiolipin antibodies Elevated serum homocysteine Heparin-induced thrombocytopenia Other congenital or acquired thrombophilia Stroke (< 1 month) Elective arthroplasty Hip, pelvis, or leg fracture Acute spinal cord injury (< 1 month) Prophylaxis Regimen Total Risk Factor Score Risk Level Prophylaxis Regimen 0-1 Low Early ambulation 2 Moderate Order ONE of the following: *Sequential Compression Device (SCD) *Heparin 5000 units SQ BID 3-4 Higher Order ONE of the following medications: *Heparin 5000 units SQ TID *Enoxaparin/Lovenox 40 mg SQ daily (WT < 150 kg, CrCl > 30 mL/min) *Enoxaparin/Lovenox 30 mg SQ daily (WT < 150 kg, CrCl > 10-29 mL/min) *Enoxaparin/Lovenox 30 mg SQ BID (WT < 150 kg, CrCl > 30 mL/min) AND/OR *Sequential Compression Device (SCD) 5 or more Highest Order ONE of the following medications: *Heparin 5000 units SQ TID (Preferred with Epidurals) *Enoxaparin/Lovenox 40 mg SQ daily (WT < 150 kg, CrCl > 30 mL/min) *Enoxaparin/Lovenox 30 mg SQ daily (WT < 150 kg, CrCl > 10-29 mL/min) *Enoxaparin/Lovenox 30 mg SQ BID (WT < 150 kg, CrCl > 30 mL/min) AND *Sequential Compression Device (SCD) Assessment and Plan Assessment and Plan Coronary artery disease - Subacute [place] - Continue home dose aspirin and Plavix - Cardiology consultation - Metoprolol - Atorvastatin Hypertension - Metoprolol - Norvasc Depressions - Citalopram Hypothyroidism - Levothyroxine Diabetes mellitus - Insulin sliding scale Diabetic neuropathy - Gabapentin Subtle nondisplaced fracture through the distal fibula Healing fractures of the anterior right acetabulum and right inferior pubic rami - Orthopedic consultation DVT GI prophylaxis - Teds SCDs - Subcutaneous heparin - Pepcid Critical Care: The total critical care time was 35 minutes. Time to perform other separately billable procedures was not included in the critical care time. Fermin Goldman MD Jul 30, 2017 05:56
[2017-07-30] MEDS: LEVOTHYROXINE SODIUM 50 MCG TAB PO SCH (06:00)
[2017-07-30] MEDS ORDERED: MORPHINE SULFATE 2 MG/ML INJ IV PUSH PRN (06:15)
[2017-07-30] MEDS: SODIUM CHLOR 0.9% 1000 ML INJ 1,000 ML IV SCH ×2 (06:28→17:20)
[2017-07-30] MEDS: FAMOTIDINE 20 MG/2 ML VIAL IV PUSH SCH ×2 (08:53→22:13)
[2017-07-30] MEDS: CLOPIDOGREL 75 MG TAB PO SCH (08:55)
[2017-07-30] MEDS: CITALOPRAM HYDROBROMIDE 40 MG TAB PO SCH (08:56)
[2017-07-30] MEDS: DOCUSATE SODIUM 50 MG/SENNA 8.6 MG TAB PO SCH ×2 (08:58→22:13)
[2017-07-30] MEDS: GABAPENTIN 300 MG CAP PO SCH ×2 (08:59→22:13)
[2017-07-30] MEDS: METOPROLOL TARTRATE 100 MG TAB PO SCH (09:00)
[2017-07-30] MEDS: SODIUM CHLORIDE 0.9% FLUSH 10 ML FLUSH IV FLUSH SCH ×2 (09:10→22:13)
--- NOTE | 2017-07-30 10:55 | MB ---
cc: Margarito Craft MD DATE: 07/30/2017 REASON FOR CONSULTATION: Right distal fibula fracture, pubic rami fractures. CONSULTING PHYSICIAN: Dr. Fermin Goldman. HISTORY CONSULTING PHYSICIAN: Steff is a 81-year-old female who presented in the emergency room with altered mental status. Her family had stated that she was sleeping more than normal. She had had multiple falls. She presented to the Emergency Department with altered mental status. She is currently awake in the Emergency Department. She does not recall having any falls. She states that her legs hurt. The right leg hurts with worse than the left. She is not sure what started the pain. The pain is worse with movement. She is not sure if she is able to stand or ambulate. ALLERGIES: METRONIDAZOLE, SULFA, AND AMOXICILLIN. PAST MEDICAL HISTORY: Narcotic abuse, depression, hypertension, diabetes, osteoporosis. PAST SURGICAL HISTORY: Bladder suspension, hysterectomy, tonsillectomy, breast cyst removal and nerve stimulator placement. MEDICATIONS: Include: 1. Levothyroxine. 2. Citalopram. 3. Elton. 4. Gabapentin. 5. Metoprolol. 6. Amlodipine. 7. Aspirin. FAMILY HISTORY: Positive for diabetes in her mother and alcoholism in her father. SOCIAL HISTORY: The patient is . She smokes 1/2 pack a day. She denies alcohol use. REVIEW OF SYSTEMS: Unreliable secondary to the patient's altered mental status. She does deny headache, visual changes, neck pain, chest pain, abdominal pain, nausea, vomiting or recent weight loss. She complains of bilateral leg pain. PHYSICAL EXAMINATION: GENERAL: The patient is a thin, 81-year-old female. She is awake. She is alert and oriented to person. She is thin and appears to be under nourished. VITAL SIGNS: Temperature 98.2, pulse 106, respirations 20, blood pressure 138/79, O2 saturation 79% on room air. HEENT: Head: The patient is normocephalic. Pupils are equal. NECK: Soft, nontender. The trachea is in the midline. ABDOMEN: Soft, nontender, and nondistended. EXTREMITIES: Examination of bilateral upper extremities reveals no obvious pain or deformity with shoulder, elbow and wrist motion. She does have some bruising on her hand. She has good capillary refill in all fingers. Sensation is intact in all fingers. Examination of the left leg reveals no significant pain with hip, knee or ankle motion. Skin is intact. Dorsalis pedis pulses palpable. She has had some small bruises on her leg. Examination of right leg reveals minimal pain with gentle hip, knee, or ankle motion. She has bruising on her right calf. Sensation intact in her right foot. She is tender to palpation directly over the distal fibula. IMAGING STUDIES: CT scan of the pelvis was reviewed. The patient has healing pubic rami fractures. She has good joint space in both hips. X-rays of the right ankle reviewed. X-rays reveal a nondisplaced right distal fibula fracture. LABORATORY DATA: The patient has a white blood cell count of 11.0, hemoglobin of 13 and hematocrit 37.0. Sodium is 121, potassium is 4.0. IMPRESSION: 1. Altered mental status. 2. Healing pubic rami fractures. 3. Nondisplaced right distal fibula fracture. PLAN: Treatment options were discussed with the patient. At this point, I would recommend nonoperative treatment of pelvic fractures and right ankle fracture. Physical Therapy will be consulted. She may weightbear as tolerated on right leg with fracture boot on. She will be fitted for a fracture boot today. All questions were answered. A mid-level provider in my office, nurse practitioner or PA, may see this patient on a follow-up basis and continue to implement the objective of this plan including: Starting or adjusting medications, injections of muscle, tendon, bursa or joints, cast application, orthotic or brace application, physical therapy, further radiographic studies including x-ray, MRI, CT, ultrasounds or bone scan, vascular studies, neurologic studies, or other specialist consultations, and proceeding with surgical management as appropriate. MD ALBA Lee/VINITA , 09:50 AM , 10:54 AM
--- NOTE | 2017-07-30 11:24 | MB ---
cc: Andrew Selby MD DATE: 07/30/2017 REASON FOR CONSULTATION: Elevated troponin. HISTORY OF PRESENT ILLNESS: The patient is a 81-year-old woman who was brought to the hospital for somnolence and change in mental status. She was brought to the emergency department where her EKG was consistent with old possibly recent anterior myocardial infarction and her troponins were mildly elevated. The patient does not have any current chest pain, but is fairly confused and she cannot seem to tell me either the month or the year. She says she does get occasional chest pain when she exerts herself, but denies any current chest pain. She says she has no shortness of breath, lightheadedness or dizziness, but just complains of being "tired". PAST MEDICAL HISTORY: Diabetes, hypertension, depression, hypothyroidism. CURRENT MEDICATIONS: Aspirin 81 mg daily, Plavix 75 mg daily, Celexa, Norvasc, Lopressor 100 mg daily. ALLERGIES: SULFA, AMOXICILLIN, FLAGYL. PHYSICAL EXAMINATION: VITAL SIGNS: Afebrile, pulse 87, respiratory rate 20, BP 120/72, sating 90 on room air. GENERAL: Pleasant, but confused, elderly woman in no distress. NECK: No JVD. LUNGS: Clear to auscultation bilaterally. CARDIOVASCULAR: Regular rate and rhythm. A 1-2/6 systolic murmur is appreciated. ABDOMEN: Benign. EXTREMITIES: No edema. LABORATORY DATA: White count 11.0, hematocrit 37.5, platelets 256. Sodium 121, potassium 4.0, chloride 83, bicarbonate 20.7, BUN 38, creatinine 1.38, glucose 108. Troponin 0.02, 0.18, BNP of 822. EKG shows sinus tachycardia with an old possibly recent anterior myocardial infarction, possibly old inferior myocardial infarction as well. IMPRESSION: 1. Elevated troponin. The patient may have had a fairly recent anterior myocardial infarction and by EKG has a likely significant ischemic cardiomyopathy with infarct patterns in the anterior and inferior regions. I will have her undergo an echocardiogram. She is pain free and given her hyponatremia, altered mental status and lack of chest pain, I would not consider her an invasive candidate at this time, but should these factors clear up, defining her coronary anatomy with cardiac catheterization might be reasonable. I will have her undergo an echocardiogram to assess her left ventricular function. Further recommendations will be based on the above. Thank you again for the opportunity to participate in this patient's care. MD JULIANNE Savage/FRANCA , 11:00 AM , 11:23 AM
[2017-07-30] MEDS ORDERED: HEPARIN SODIUM - IV 10,000 UNITS/10 ML VIAL IV PUSH PRN ×2 (11:30)
[2017-07-30 11:32] LABS: HEMATOCRIT 33.6 % (35.0-46.0); HEMOGLOBIN 11.6 GM/DL (11.6-15.3); MEAN CELL VOLUME 87.9 FL (80.0-100.0); MEAN CORPUSCULAR HEMOGLOBIN 30.3 PG (27.0-34.0); MEAN CORPUSCULAR HGB CONC 34.5 % (32.0-36.0); MEAN PLATELET VOLUME 7.5 FL (7.0-11.0); PLATELET COUNT 240 TH/MM3 (150-450); RED BLOOD COUNT 3.82 MIL/MM3 (4.00-5.30); RED CELL DISTRIBUTION WIDTH 16.6 % (11.6-17.2); WHITE BLOOD COUNT 10.4 TH/MM3 (4.0-11.0)
[2017-07-30 11:37] LABS: PROTHROMBIN TIME - PATIENT 9.7 SEC (9.8-11.6)
--- NOTE | 2017-07-30 18:06 | HHI.CCPN ---
Subjective Remarks/Hospital Course 81-year-old female presents for altered mental status. According EMS the patient was at home during the day, and her trailer, when family noticed that she was sleeping more than normal. The patient had also fallen several times and had bruising to the left foot, right ankle, mid right back. EMS states that family noticed that the patient had an altered mental status. Upon arrival the patient denied any complaints, however, she is only oriented to person and location, not month, year, or snuff container inspector. She is a poor and somewhat limited historian. The patient had ST elevations noted in V2 and V3 with Q waves in lead 2, 3, aVF, V2, and V3. Dr. Bryant from emergency department discussed the EKG with the on-call power generation turbine room operator, Dr. Hernandez. Per chart documentation the patient had an [place], subacute, possibly the last several weeks. She is currently chest pain-free and has evidence of trauma, and it was agreed the patient would receive aspirin but we will hold anticoagulants including Lovenox and heparin. 07/30 1700 hours: Severe hyponatremia this morning with Na 121 and no logical explanation for another molecule such as glucose or ETOH driving it down. Will continue serial sodiums and follow increase closely. Objective Vital Signs Date Time Temp Pulse Resp B/P (MAP) Pulse Ox O2 Delivery O2 Flow Rate FiO2 07/30/17 15:33 97.8 78 16 102/68 (79) 98 07/30/17 14:30 Room Air Intake and Output 07/30/17 07/30/17 07/31/17 08:00 16:00 00:00 Intake Total 600 ml Balance 600 ml Result Diagram: 07/30/17 1010 07/30/17 0124 Objective Remarks GENERAL: Lethargic, disoriented. SKIN: Warm and dry. HEAD: Normocephalic. EYES: No scleral icterus. No injection or drainage. NECK: Supple, trachea midline. No JVD or lymphadenopathy. CARDIOVASCULAR: Regular rate and rhythm without murmurs, gallops, or rubs. RESPIRATORY: Breath sounds equal bilaterally. No accessory muscle use. GASTROINTESTINAL: Abdomen soft, non-tender, nondistended. BS active. MUSCULOSKELETAL: Ecchymosis noted over the lateral distal left foot. Ecchymosis and edema noted of the right lateral malleus. Chronic skin changes noted to the anterior aspect the lower extremity is bilateral. Back: Ecchymosis noted to the right mid back and flank. NEUROLOGICAL: Awake, eyes: Open, answers questions, but is only oriented to person and place, not current month, year, or snuff container inspector. Follow simple commands, remains confused. A/P Assessment and Plan Coronary artery disease - Subacute [place] - Continue home dose aspirin and Plavix - Cardiology consultation - Metoprolol - Atorvastatin Hyponatremia - Na 121 - No elevated alcohol, glycerol, glucose, etc. - ? bear potomania - Limit increase to 8 q24h Hypertension - Metoprolol - Norvasc Depressions - Citalopram Hypothyroidism - Levothyroxine Diabetes mellitus - Insulin sliding scale Diabetic neuropathy - Gabapentin Subtle nondisplaced fracture through the distal fibula Healing fractures of the anterior right acetabulum and right inferior pubic rami - Orthopedic consultation DVT GI prophylaxis - Teds SCDs - Subcutaneous heparin - Pepcid Overall impression: Critically ill with severe hyponatremia and NSTEMI. Further complicated by "dry" CXR but elevated BNP. Follow Na correction closely. Critical Care 55 mins Ketan Robles MD Jul 30, 2017 18:06
--- NOTE | 2017-07-30 19:54 | EKG ---
Date Performed: 07/30/2017 Time Performed: 01:30:54 PTAGE: 81 years EKG: SINUS TACHYCARDIA ANTERIOR MYOCARDIAL INFARCTION INFERIOR MYOCARDIAL INFARCTION ACUTE WI NO PREVIOUS TRACING DOCTOR: Darryn Greco Interpretating Date/Time 07/30/2017 19:50:19
--- NOTE | 2017-07-30 19:54 | EKG ---
Date Performed: 07/30/2017 Time Performed: 01:34:13 PTAGE: 81 years EKG: SINUS TACHYCARDIA ANTERIOR MYOCARDIAL INFARCTION INFERIOR MYOCARDIAL INFARCTION ACUTE [place] Since the PREVIOUS TRACING , no significant change noted PREVIOUS TRACIN07/30/17 @ 0130 DOCTOR: Darryn Greco Interpretating Date/Time 07/30/2017 19:50:44
--- NOTE | 2017-07-30 19:54 | EKG ---
Date Performed: 07/30/2017 Time Performed: 01:35:06 PTAGE: 81 years EKG: SINUS TACHYCARDIA SEPTAL MYOCARDIAL INFARCTION INFERIOR MYOCARDIAL INFARCTION ACUTE MS * Since the PREVIOUS TRACING , no significant change noted PREVIOUS TRACIN07/30/17 @ 0134 DOCTOR: Darryn Greco Interpretating Date/Time 07/30/2017 19:51:03
--- NOTE | 2017-07-30 19:55 | EKG ---
Date Performed: 07/30/2017 Time Performed: 06:48:02 PTAGE: 81 years EKG: SINUS TACHYCARDIA INFERIOR MYOCARDIAL INFARCTION ANTEROSEPTAL MYOCARDIAL INFARCTION ACUT E SC Since the PREVIOUS TRACING , no significant change noted PREVIOUS TRACIN07/30/17 @ 0135 DOCTOR: Darryn Greco Interpretating Date/Time 07/30/2017 19:51:26
[2017-07-31] VITALS (11 sets, daily range): BP systolic 93–145; BP diastolic 49–73; PULSE 71–93; RESP 12–18; TEMP 97.4–98; O2SAT 94–100
[2017-07-31] MEDS: CHLORHEXIDINE GLUCONATE 2 % 1 PACK (2 CLOTHS) TOP SCH (04:00)
[2017-07-31] MEDS ORDERED: DEXTROSE 5% IN WATE 1000ML INJ 1,000 ML IV SCH (04:45)
[2017-07-31 05:36] LABS: PROTHROMBIN TIME - PATIENT 10.1 SEC (9.8-11.6)
[2017-07-31 05:49] LABS: AUTOMATED NEUTROPHIL # 3.6 TH/MM3 (1.8-7.7); BASOPHIL % 0.2 % (0.0-2.0); EOSINOPHIL # 0.1 TH/MM3 (0-0.4); EOSINOPHIL % 1.8 % (0.0-4.0); HEMATOCRIT 31.5 % (35.0-46.0); HEMOGLOBIN 10.6 GM/DL (11.6-15.3); LYMPH % 25.3 % (9.0-44.0); LYMPHOCYTE # 1.5 TH/MM3 (1.0-4.8); MEAN CORPUSCULAR HEMOGLOBIN 29.9 PG (27.0-34.0); MEAN CORPUSCULAR HGB CONC 33.6 % (32.0-36.0); MEAN PLATELET VOLUME 7.6 FL (7.0-11.0); MONO % 9.8 % (0.0-8.0); MONOCYTE # 0.6 TH/MM3 (0-0.9); NEUT % 62.9 % (16.0-70.0); PLATELET COUNT 244 TH/MM3 (150-450); RED BLOOD COUNT 3.54 MIL/MM3 (4.00-5.30); RED CELL DISTRIBUTION WIDTH 16.8 % (11.6-17.2); WHITE BLOOD COUNT 5.8 TH/MM3 (4.0-11.0)
[2017-07-31] MEDS: LEVOTHYROXINE SODIUM 50 MCG TAB PO SCH ×2 (05:55→11:56)
[2017-07-31 05:56] LABS: ALKALINE PHOSPHATASE 64 U/L (45-117); TOTAL BILIRUBIN ADULT 0.6 MG/DL (0.2-1.0); TOTAL PROTEIN 5.5 GM/DL (6.4-8.2)
[2017-07-31 06:05] LABS: ALBUMIN 2.5 GM/DL (3.4-5.0); ALT (GPT) 15 U/L (10-53); AST (GOT) 29 U/L (15-37); BICARBONATE 22.9 MEQ/L (21.0-32.0); BLOOD UREA NITROGEN 22 MG/DL (7-18); CALCIUM 7.6 MG/DL (8.5-10.1); CHLORIDE 98 MEQ/L (98-107); CREATININE 0.83 MG/DL (0.50-1.00); GLOMERULAR FILTRATION RATE 66 ML/MIN (>89); GLUCOSE,RANDOM 91 MG/DL (74-106); MAGNESIUM 1.6 MG/DL (1.5-2.5); PHOSPHORUS 1.9 MG/DL (2.5-4.9); SODIUM (NA) 130 MEQ/L (136-145)
--- NOTE | 2017-07-31 07:06 | PD.ORT.PN ---
Subjective Subjective Remarks s/p right lateral malleolus fx resting comfortably. no changes Objective Vitals Vital Signs Date Time Temp Pulse Resp B/P (MAP) Pulse Ox O2 Delivery O2 Flow Rate FiO2 07/31/17 06:00 83 07/31/17 04:00 97.9 76 12 108/65 (79) 99 07/31/17 04:00 76 07/31/17 02:00 79 07/31/17 00:00 82 07/31/17 00:00 98.0 85 12 109/56 (73) 98 07/30/17 22:00 91 07/30/17 22:00 88 07/30/17 20:00 97.6 92 19 111/61 (78) 95 07/30/17 15:33 97.8 78 16 102/68 (79) 98 07/30/17 14:30 97.8 69 20 96/56 (69) 99 Room Air 07/30/17 13:30 97.7 76 16 108/77 (87) 98 Room Air 07/30/17 12:30 97.9 76 16 118/77 (91) 98 Room Air 07/30/17 11:37 97.8 89 18 120/76 (91) 98 Room Air 07/30/17 10:28 98.3 87 20 128/72 (90) 98 Room Air 07/30/17 08:42 98.2 106 20 138/79 (98) 97 Room Air 07/30/17 07:05 97.8 111 17 110/67 (81) 98 Room Air 07/30/17 07:05 113 17 98 Room Air I/O 07/30/17 07/30/17 07/30/17 07/31/17 07/31/17 07/31/17 07:00 15:00 23:00 07:00 15:00 23:00 Intake Total 600 ml 0 ml Output Total 375 ml 1200 ml Balance 600 ml -375 ml -1200 ml Intake Oral 600 ml 0 ml Output Urine Total 375 ml 1200 ml # Voids 2 # Bowel Movements 0 0 Result Diagram: 07/31/1742107/31/17421 Other Results Laboratory Tests Test 07/30/17 10:10 07/31/17 04:22 Prothromb Time International Ratio 1.0 RATIO 1.0 RATIO Prothrombin Time 9.7 SEC (9.8-11.6) 10.1 SEC (9.8-11.6) Objective Remarks RLE: +fracture boot. intact. nvi. Assessment & Plan Assessment and Plan 1) Right Lateral Malleolus fx - nonop -maintain boot at all times -WBAT while wearing boot -as long as maintains position, will plan for nonop treatment -f/u with [facility] or PA in 10-14 days 2) right Pubic Rami Fxs - nonop -WBAT Chapin Ayala PA/[facility] PA Jul 31, 2017 07:06
--- NOTE | 2017-07-31 08:48 | PD.CARD.PN ---
Subjective Subjective Remarks Pt still confused, denies cp/sob Objective Medications Current Medications Medications (Trade) Dose Ordered Sig/Rachel Route Start Time Stop Time Status Last Admin (Norvasc) 10 mg DAILY PO 07/30/17 09:00 07/30/17 09:00 (Aspirin Chew) 81 mg DAILY CHEW 07/31/17 09:00 (CeleXA) 40 mg DAILY PO 07/30/17 09:00 07/30/17 08:56 (Plavix) 75 mg DAILY PO 07/30/17 09:00 07/30/17 08:55 (Neurontin) 300 mg BID PO 07/30/17 09:00 07/30/17 22:13 ([place] 10-325 Mg) 1 tab Q6H PRN PO 07/30/17 05:30 (Synthroid) 50 mcg DAILY@0600 PO 07/30/17 06:00 07/31/17 05:55 (Lopressor) 100 mg DAILY PO 07/30/17 09:00 07/30/17 09:00 (NS Flush) 2 ml UNSCH PRN IV FLUSH 07/30/17 05:30 (NS Flush) 2 ml BID IV FLUSH 07/30/17 09:00 07/30/17 22:13 (Tylenol) 650 mg Q6H PRN PO 07/30/17 05:30 (Morphine Inj) 2 mg Q2H PRN IV PUSH 07/30/17 06:15 (Pepcid Inj) 10 mg Q12HR IV PUSH 07/30/17 09:00 07/30/17 22:13 (Zofran Inj) 4 mg Q6H PRN IV PUSH 07/30/17 05:30 (Restoril) 15 mg HS PRN PO 07/30/17 05:30 07/30/17 22:20 (Duoneb Neb) 1 ampule Q2HR NEB PRN INH 07/30/17 05:30 Miscellaneous Information 1 Q361D XX 07/30/17 05:30 (Chlorhexidine 2% Cloth) 3 pack Taper DAILY@04 TOP 07/31/17 04:00 07/27/18 03:59 07/31/17 04:00 (Chlorhexidine 2% Cloth) 3 pack UNSCH PRN TOP 07/30/17 05:30 (Anitha-Colace) 1 tab BID PO 07/30/17 09:00 07/30/17 22:13 (Milk Of Magnesia Liq) 30 ml Q12H PRN PO 07/30/17 05:30 (Senokot) 17.2 mg Q12H PRN PO 07/30/17 05:30 (Dulcolax Supp) 10 mg DAILY PRN RECTAL 07/30/17 05:30 (Lactulose Liq) 30 ml DAILY PRN PO 07/30/17 05:30 Dextrose 1,000 ml @ 60 mls/hr [id number] IV 07/31/17 04:45 07/31/17 07:19 Vital Signs / I&O Vital Signs Date Time Temp Pulse Resp B/P (MAP) Pulse Ox O2 Delivery O2 Flow Rate FiO2 07/31/17 06:00 83 07/31/17 04:00 97.9 76 12 108/65 (79) 99 07/31/17 04:00 76 07/31/17 02:00 79 07/31/17 00:00 82 07/31/17 00:00 98.0 85 12 109/56 (73) 98 07/30/17 22:00 91 07/30/17 22:00 88 07/30/17 20:00 97.6 92 19 111/61 (78) 95 07/30/17 15:33 97.8 78 16 102/68 (79) 98 07/30/17 14:30 97.8 69 20 96/56 (69) 99 Room Air 07/30/17 13:30 97.7 76 16 108/77 (87) 98 Room Air 07/30/17 12:30 97.9 76 16 118/77 (91) 98 Room Air 07/30/17 11:37 97.8 89 18 120/76 (91) 98 Room Air 07/30/17 10:28 98.3 87 20 128/72 (90) 98 Room Air I/O 07/30/17 07/30/17 07/30/17 07/31/17 07/31/17 07/31/17 07:00 15:00 23:00 07:00 15:00 23:00 Intake Total 600 ml 0 ml 120 ml Output Total 375 ml 1200 ml Balance 600 ml -375 ml -1200 ml 120 ml Intake Oral 600 ml 0 ml IV Total 120 ml Output Urine Total 375 ml 1200 ml # Voids 2 # Bowel Movements 0 0 Physical Exam GENERAL: somnolent CARDIOVASCULAR: Regular rate and rhythm without murmurs, gallops, or rubs. RESPIRATORY: Clear to auscultation. Breath sounds equal bilaterally. No wheezes , rales, or rhonchi. GASTROINTESTINAL: Abdomen soft, non-tender, nondistended. Normal active bowel sounds MUSCULOSKELETAL: Extremities without clubbing, cyanosis, or edema. NEURO: confused Laboratory Laboratory Tests Test 07/30/17 10:10 07/30/17 11:40 07/30/17 15:04 07/30/17 19:16 White Blood Count 10.4 TH/MM3 Red Blood Count 3.82 MIL/MM3 Hemoglobin 11.6 GM/DL Hematocrit 33.6 % Mean Corpuscular Volume 87.9 FL Mean Corpuscular Hemoglobin 30.3 PG Mean Corpuscular Hemoglobin Concent 34.5 % Red Cell Distribution Width 16.6 % Platelet Count 240 TH/MM3 Mean Platelet Volume 7.5 FL Hematology Comments Prothrombin Time 9.7 SEC Prothromb Time International Ratio 1.0 RATIO Activated Partial Thromboplast Time 21.1 SEC 25.0 SEC Troponin I 0.15 NG/ML Sodium Level 125 MEQ/L Test 07/31/17 01:57 07/31/17 04:22 Sodium Level 130 MEQ/L 130 MEQ/L White Blood Count 5.8 TH/MM3 Red Blood Count 3.54 MIL/MM3 Hemoglobin 10.6 GM/DL Hematocrit 31.5 % Mean Corpuscular Volume 89.0 FL Mean Corpuscular Hemoglobin 29.9 PG Mean Corpuscular Hemoglobin Concent 33.6 % Red Cell Distribution Width 16.8 % Platelet Count 244 TH/MM3 Mean Platelet Volume 7.6 FL Neutrophils (%) (Auto) 62.9 % Lymphocytes (%) (Auto) 25.3 % Monocytes (%) (Auto) 9.8 % Eosinophils (%) (Auto) 1.8 % Basophils (%) (Auto) 0.2 % Neutrophils # (Auto) 3.6 TH/MM3 Lymphocytes # (Auto) 1.5 TH/MM3 Monocytes # (Auto) 0.6 TH/MM3 Eosinophils # (Auto) 0.1 TH/MM3 Basophils # (Auto) 0.0 TH/MM3 CBC Comment DIFF FINAL Differential Comment Prothrombin Time 10.1 SEC Prothromb Time International Ratio 1.0 RATIO Activated Partial Thromboplast Time 24.3 SEC Blood Urea Nitrogen 22 MG/DL Creatinine 0.83 MG/DL Random Glucose 91 MG/DL Total Protein 5.5 GM/DL Albumin 2.5 GM/DL Calcium Level 7.6 MG/DL Phosphorus Level 1.9 MG/DL Magnesium Level 1.6 MG/DL Alkaline Phosphatase 64 U/L Aspartate Amino Transf (AST/SGOT) 29 U/L Alanine Aminotransferase (ALT/SGPT) 15 U/L Total Bilirubin 0.6 MG/DL Potassium Level 3.6 MEQ/L Chloride Level 98 MEQ/L Carbon Dioxide Level 22.9 MEQ/L Anion Gap 9 MEQ/L Estimat Glomerular Filtration Rate 66 ML/MIN Imaging Last Impressions Head CT 07/30/17 0000 Signed Impressions: Service Date/Time: Sunday, July 30, 2017 03:20 - CONCLUSION: 1. No acute hemorrhage, mass or evidence of infarction. 2. Atrophy and chronic small vessel ischemic change. Dayne Jordan MD Foot X-Ray 07/30/17 0000 Signed Impressions: Service Date/Time: Sunday, July 30, 2017 02:13 - CONCLUSION: Negative limited two-view exam . Dayne Jordan MD Chest X-Ray 07/30/17 0000 Signed Impressions: Service Date/Time: Sunday, July 30, 2017 02:05 - CONCLUSION: No acute disease. Dayne Jordan MD Ankle X-Ray 07/30/17 0000 Signed Impressions: Service Date/Time: Sunday, July 30, 2017 02:11 - CONCLUSION: 1. Subtle nondisplaced fracture through the distal fibula. Dayne Jordan MD Abdomen/Pelvis CT 07/30/17 0000 Signed Impressions: Service Date/Time: Sunday, July 30, 2017 03:24 - CONCLUSION: 1. No acute visceral injury. 2. Healing fractures of the anterior right acetabulum and right inferior pubic rami. Dayne Jordan MD Assessment and Plan Problem List: (1) NSTEMI (non-ST elevated myocardial infarction) ICD Codes: I21.4 - Non-ST elevation (NSTEMI) myocardial infarction Status: Acute Plan: Likely recent IL, perhaps even a very late presentation of an anterior STEMI; no current cardiac sx and w/ confusion and metabolic derangements, would consider her a candidate for medical therapy only at this time. An echo is pending. Assessment and Plan At this time will sign off an be available as needed, if/when her mental status improves significantly where cardiac workup might be appropriate, pls call. Andrew Selby MD Jul 31, 2017 08:48
--- NOTE | 2017-07-31 10:47 | HHI.CCPN ---
Subjective Remarks/Hospital Course 81-year-old female presents for altered mental status. According EMS the patient was at home during the day, and her trailer, when family noticed that she was sleeping more than normal. The patient had also fallen several times and had bruising to the left foot, right ankle, mid right back. EMS states that family noticed that the patient had an altered mental status. Upon arrival the patient denied any complaints, however, she is only oriented to person and location, not month, year, or business development coordinator. She is a poor and somewhat limited historian. The patient had ST elevations noted in V2 and V3 with Q waves in lead 2, 3, aVF, V2, and V3. Dr. Bryant from emergency department discussed the EKG with the on-call hydraulic dredge operator, Dr. Hernandez. Per chart documentation the patient had an MT, subacute, possibly the last several weeks. She is currently chest pain-free and has evidence of trauma, and it was agreed the patient would receive aspirin but we will hold anticoagulants including Lovenox and heparin. 07/30 1700 hours: Severe hyponatremia this morning with Na 121 and no logical explanation for another molecule such as glucose or ETOH driving it down. Will continue serial sodiums and follow increase closely. 07/31: Resting comfortably. Tolerates room air well. Mentating O2 sats. Eating breakfast currently. Denies any chest pain or shortness of breath. Objective Vital Signs Date Time Temp Pulse Resp B/P (MAP) Pulse Ox O2 Delivery O2 Flow Rate FiO2 07/31/17 06:00 83 07/31/17 04:00 97.9 12 108/65 (79) 99 07/30/17 14:30 Room Air Intake and Output 07/31/17 07/31/17 08/01/17 08:00 16:00 00:00 Intake Total 120 ml Output Total 1200 ml Balance -1080 ml Result Diagram: 07/31/17 04207/31/17 042 Objective Remarks GENERAL: Lethargic, disoriented. SKIN: Warm and dry. HEAD: Normocephalic. EYES: No scleral icterus. No injection or drainage. NECK: Supple, trachea midline. No JVD or lymphadenopathy. CARDIOVASCULAR: Regular rate and rhythm without murmurs, gallops, or rubs. RESPIRATORY: Breath sounds equal bilaterally. No accessory muscle use. GASTROINTESTINAL: Abdomen soft, non-tender, nondistended. BS active. MUSCULOSKELETAL: Ecchymosis noted over the lateral distal left foot. Ecchymosis and edema noted of the right lateral malleus. Chronic skin changes noted to the anterior aspect the lower extremity is bilateral. Back: Ecchymosis noted to the right mid back and flank. NEUROLOGICAL: Awake, eyes: Open, answers questions, but is only oriented to person and place, not current month, year, or business development coordinator. Follow simple commands, remains confused. A/P Assessment and Plan Coronary artery disease - Subacute MT - Continue home dose aspirin and Plavix - Cardiology consultation - Metoprolol - Atorvastatin Hyponatremia - Na 121 improved to 130 - No elevated alcohol, glycerol, glucose, etc. - ? bear potomania - Limit increase to 8 q24h. Hypertension - Metoprolol - Norvasc Depressions - Citalopram Hypothyroidism - Levothyroxine Diabetes mellitus - Insulin sliding scale Diabetic neuropathy - Gabapentin Subtle nondisplaced fracture through the distal fibula Healing fractures of the anterior right acetabulum and right inferior pubic rami - Orthopedic consultation DVT GI prophylaxis - Teds SCDs - Subcutaneous heparin - Pepcid Cardiology not planning any intervention currently. Patient will be transferred out of ICU. Consult and transfer to hospitalist service for further medical management. Critical care will sign off, please reconsult if needed. Emmett Llamas MD Jul 31, 2017 10:47
[2017-07-31] MEDS: FAMOTIDINE 20 MG/2 ML VIAL IV PUSH SCH ×2 (11:55→21:22)
[2017-07-31] MEDS: CITALOPRAM HYDROBROMIDE 40 MG TAB PO SCH (11:56)
[2017-07-31] MEDS: METOPROLOL TARTRATE 100 MG TAB PO SCH (11:57)
[2017-07-31] MEDS: CLOPIDOGREL 75 MG TAB PO SCH (11:57)
[2017-07-31] MEDS: GABAPENTIN 300 MG CAP PO SCH ×2 (11:57→21:20)
[2017-07-31] MEDS: ASPIRIN 81 MG CHEW TAB CHEW SCH (11:57)
[2017-07-31] MEDS: DOCUSATE SODIUM 50 MG/SENNA 8.6 MG TAB PO SCH ×2 (11:58→21:20)
[2017-07-31] MEDS: SODIUM CHLORIDE 0.9% FLUSH 10 ML FLUSH IV FLUSH SCH ×2 (11:58→21:22)
--- NOTE | 2017-07-31 15:32 | HHI.HCPN ---
Palliative care consulted to assist with goals of care for Mrs. Ascencio. Left message for , Blas to set up family meeting. Awaiting call back. Palliative care will continue to follow throughout hospitalization. Goals of care to be determined upon family meeting. Alisa Haji, INDUSTRIAL HEALTH AND SAFETY PROFESSOR Jul 31, 2017 15:32
--- NOTE | 2017-07-31 17:19 | PD.CONS ---
Consult Service Palliative Care . Consult Requested By Dr. Llamas . Primary Care Physician No Primary Care Physician . Reason for Consultation a. To assist with evaluation and management of symptoms including: Confusion , pain, debility b. To assist medical decision maker(s) with: better understanding of current medical conditions; weighing benefits/burdens of medical treatment options; making medical treatment decisions. HPI History of Present Illness Patient is a 81-year-old female with depression, questionable TIA, CAD, chronic back pain, degenerative disc disease, hypertension and diabetes who presented to [facility] ED via EMS on 07/30/2017 for evaluation of altered mental status. Patient's reported the patient had been sleeping more than usual status and had fallen several times. While in the ED, the patient did not recall any recent falls. She reported pain in her legs but did not know what caused the pain. She reported her right leg hurt more than her left, and the pain was exacerbated with movement. She was uncertain if she could stand or ambulate. Additional diagnostic data: * Vital signs: pulse 113, respirations 16, BP 113/72, oxygen saturation 100% on room air * WBC: 11.0, hemoglobin 13.0, hematocrit 37.5, platelets 256, neutrophils 79.3% * Sodium: 121, potassium 4.0, chloride 83, carbon dioxide 20.7, glucose 108, calcium 8.4 * BUN: 38, creatinine 1.38, GFR 37 * Lactic acid: 0.8 * Total bilirubin: 0.9, AST 32, ALT 19, alkaline phosphatase 83 * Total creatine kinase: 210 * CK-MB: 8.6 * Troponin: 0.22 * BNP: 822 * Total protein: 6.6, albumin 3.2 * PT: 9.7, INR 1.0, APTT 21.1 * Urinalysis WNL * Blood cultures negative today * Ankle x-ray showed no displaced fracture through the distal fibula * Chest x-ray revealed no acute disease * Foot x-ray showed no fractures * EKG showed ST elevations in V2 and V3 with Q waves in leads II, III, aVFV2 and V3 The ED physician spoke with the on-call track subway repair supervisor, Dr. Hernandez, regarding EKG. Patient likely had a myocardial infarction, subacute, possibly in the last several weeks. Patient did have evidence of trauma so she underwent a workup for possible bleeding intra-abdominally and/or and intracranially. CT of the brain was unremarkable for acute hemorrhage. CT abdomen/pelvis revealed healing right acetabulum and right inferior pubic rami. Since there was no evidence of bleeding, the patient received aspirin orally. X-ray of the foot and chest were unremarkable. Patient was admitted for further evaluation ( specifically cardiac) and medical management. Patient was admitted to the intensive care unit overnight secondary to her altered mental status and low sodium of 121. Orthopedic surgery was consulted. Dr. Craft saw the patient secondary to healing pubic rami fractures and a nondisplaced right distal fibula fracture. He recommended nonoperative treatment at this time and physical therapy. Patient may weight-bear as tolerated on right leg when fracture boot is in place. Cardiology, Dr. Selby, was also consulted. Patient may have had a fairly recent anterior myocardial infarction, significant ischemic cardiomyopathy as well. Patient is not a candidate for invasive interventions at this time but a cardiac catheterization may be reasonable in the future. Echocardiogram pending. Palliative Care was consulted to assist with symptom management and to discuss with the family the benefits and burdens of her current illnesses and the options regarding future care. . Function/Cognitive Trajectory Patient lives in a trailer with a three-step entryway. She uses a cane or walker to ambulate within the home. Patient states she continues to drive, but her corrects her saying that rarely happens. . Review of Systems ROS Limitations: Clinical Condition, Altered Mental Status, Poor Historian Past Family Social History Coded Allergies: metronidazole (Unverified Allergy, Severe, Rash, 07/30/17) Sulfa (Sulfonamide Antibiotics) (Unverified Allergy, Mild, rash, 07/30/17) amoxicillin (Unverified Allergy, Mild, rash, 07/30/17) Past Medical History Intractable back pain, compression deformities T6, T11, T12 and L1, L5. Narcotic abuse. Multiple admission for narcotic overdose. Depression. Urinary tract infection, positive for yeast. Hypertension, appears to be stable. Diabetes type 2. Degenerative disk disease. Previous falls. Previous fracture ankle. CAD Hypothyroidism Depression Diabetic neuropathy . Past Surgical History Cardiac stents 4 Bladder suspension Partial hysterectomy Tonsillectomy Implantation of neurostimulator in 06/2011 Cyst removed from breast . Reported Medications Biotin 5 Mg Cap 5 Mg PO Levothyroxine (Levothyroxine Sodium) 50 Mcg Tab 50 Mcg PO DAILY Miralax Powder (Polyethylene Glycol 3350 Powder) 17 Gm Powd 17 Gm PO DAILY Mix and dissolve one measuring cap-ful (17 grams) in water or juice. Citalopram (Citalopram Hydrobromide) 40 Mg Tab 40 Mg PO DAILY Hydrocodone-Acetaminophen 10-325 mg Tab 1 Tab PO Q6H PRN Clopidogrel (Clopidogrel Bisulfate) 75 Mg Tab 75 Mg PO DAILY Gabapentin 300 Mg Cap 300 Mg PO BID Metformin (Metformin HCl) 500 Mg Tab 500 Mg PO DAILY With a meal Metoprolol Tartrate 100 Mg Tab 100 Mg PO DAILY Amlodipine (Amlodipine Besylate) 10 Mg Tab 10 Mg PO DAILY Aspirin 81 Mg Chew 81 Mg CHEW DAILY . Current Medications Medications (Trade) Dose Ordered Sig/Rachel Route Start Time Stop Time Status Last Admin (Norvasc) 10 mg DAILY PO 07/30/17 09:00 07/31/17 11:57 (Aspirin Chew) 81 mg DAILY CHEW 07/31/17 09:00 07/31/17 11:57 (CeleXA) 40 mg DAILY PO 07/30/17 09:00 07/31/17 11:56 (Plavix) 75 mg DAILY PO 07/30/17 09:00 07/31/17 11:57 (Neurontin) 300 mg BID PO 07/30/17 09:00 07/31/17 11:57 ([place] 10-325 Mg) 1 tab Q6H PRN PO 07/30/17 05:30 (Synthroid) 50 mcg DAILY@0600 PO 07/30/17 06:00 07/31/17 11:56 (Lopressor) 100 mg DAILY PO 07/30/17 09:00 07/31/17 11:57 (NS Flush) 2 ml UNSCH PRN IV FLUSH 07/30/17 05:30 (NS Flush) 2 ml BID IV FLUSH 07/30/17 09:00 07/31/17 11:58 (Tylenol) 650 mg Q6H PRN PO 07/30/17 05:30 (Morphine Inj) 2 mg Q2H PRN IV PUSH 07/30/17 06:15 (Pepcid Inj) 10 mg Q12HR IV PUSH 07/30/17 09:00 07/31/17 11:55 (Zofran Inj) 4 mg Q6H PRN IV PUSH 3/25/18 05:30 (Restoril) 15 mg HS PRN PO 07/30/17 05:30 07/30/17 22:20 (Duoneb Neb) 1 ampule Q2HR NEB PRN INH 07/30/17 05:30 Miscellaneous Information 1 Q361D XX 07/30/17 05:30 (Chlorhexidine 2% Cloth) 3 pack Taper DAILY@04 TOP 07/31/17 04:00 07/27/18 03:59 07/31/17 04:00 (Chlorhexidine 2% Cloth) 3 pack UNSCH PRN TOP 07/30/17 05:30 (Anitha-Colace) 1 tab BID PO 07/30/17 09:00 07/31/17 11:58 (Milk Of Magnesia Liq) 30 ml Q12H PRN PO 07/30/17 05:30 (Senokot) 17.2 mg Q12H PRN PO 07/30/17 05:30 (Dulcolax Supp) 10 mg DAILY PRN RECTAL 07/30/17 05:30 (Lactulose Liq) 30 ml DAILY PRN PO 07/30/17 05:30 (Lipitor) 40 mg HS PO 07/31/17 21:00 . Family History Patient's mother had diabetes. Her father from complications related to EtOH abuse. . Substance Use Tobacco: Active smoker; one half pack daily Alcohol: None known Prescription med abuse: History of narcotic abuse? Illicits: None unknown . Psychosocial History Patient is . She had 2 children. One daughter is living and one child is . Spiritual/Cultural Factors Catholic shreya . Health Care Surrogate(s): Per [place] statutes, in the absence of written advanced directives healthcare proxy decision making falls to the patient's spouse. . Documented care wishes: At this time it does not appear the patient ever completed written advanced directives, will discuss further during family meeting. . Today's verbally stated goals: Patient is confused, does not have insight or judgment related to her current medical conditions. . Family/friends goals: Pending family meeting. . Ethical and Legal Issues No known ethical or legal issues at this time. . Physical Exam Vital Signs Date Time Temp Pulse Resp B/P (MAP) Pulse Ox O2 Delivery O2 Flow Rate FiO2 07/31/17 14:00 72 07/31/17 12:00 97.6 93 18 128/73 (91) 98 07/31/17 12:00 93 07/31/17 10:20 98 Nasal Cannula 3.00 07/31/17 10:00 87 07/31/17 08:00 81 07/31/17 08:00 97.6 81 15 145/68 (93) 100 07/31/17 07:00 100 Nasal Cannula 3.00 07/31/17 06:00 83 07/31/17 04:00 97.9 76 12 108/65 (79) 99 07/31/17 04:00 76 07/31/17 02:00 79 07/31/17 00:00 82 07/31/17 00:00 98.0 85 12 109/56 (73) 98 07/30/17 22:00 91 07/30/17 22:00 88 07/30/17 20:00 97.6 92 19 111/61 (78) 95 . 07/31/17 08/01/17 19:00 07:00 Intake Total 926 ml Output Total 1100 ml Balance -174 ml Intake Oral 600 ml IV Total 326 ml Output Urine Total 1100 ml # Voids 1 . Exam CONSTITUTIONAL/GENERAL: This is a frail appearing, elderly female patient who is confused. TUBES/LINES/DRAINS: PIV 2 SKIN: Ecchymoses on upper extremities; skin tear on left lower extremity as well as bruising on the lateral distal left foot. Chronic skin changes noted to the anterior aspect the lower extremity is bilateral. Skin temperature appropriate. Not diaphoretic. HEAD: Atraumatic. Normocephalic. EYES: Pupils equal and round and reactive. Extraocular motions intact. No scleral icterus. No injection or drainage. Fundi not examined. ENT: Hearing grossly normal. Nose without bleeding or purulent drainage. NECK: Trachea midline. Supple, nontender. No palpable thyroid enlargement or nodularity. CARDIOVASCULAR: Regular rate and rhythm without murmurs, gallops, or rubs. No JVD. Peripheral pulses symmetric. RESPIRATORY/CHEST: Symmetric, unlabored respirations. Clear to auscultation. Breath sounds equal bilaterally. No wheezes, rales, or rhonchi. GASTROINTESTINAL: Abdomen soft, non-tender, nondistended. No guarding. Bowel sounds present. GENITOURINARY: Without palpable bladder distension. Yin catheter in place. MUSCULOSKELETAL: Extremities without clubbing, cyanosis, or edema. No mottling or clubbing. LYMPHATICS: No palpable cervical or supraclavicular adenopathy. NEUROLOGICAL: Awake, eyes are open. Patient answers simple questions but remains confused. Oriented to person and place only. Unable to tell me the names of her and daughter. Moving all extremities 4. Follows simple commands. PSYCHIATRIC: No obvious anxiety/depression. No apparent hallucinations or other psychotic thought process. . Diagnostic Tests Laboratory Laboratory Tests Test 07/30/17 01:24 07/30/17 02:08 07/30/17 06:45 07/30/17 10:10 White Blood Count 11.0 TH/MM3 (4.0-11.0) 10.4 TH/MM3 (4.0-11.0) Red Blood Count 4.19 MIL/MM3 (4.00-5.30) 3.82 MIL/MM3 (4.00-5.30) Hemoglobin 13.0 GM/DL (11.6-15.3) 11.6 GM/DL (11.6-15.3) Hematocrit 37.5 % (35.0-46.0) 33.6 % (35.0-46.0) Mean Corpuscular Volume 89.3 FL (80.0-100.0) 87.9 FL (80.0-100.0) Mean Corpuscular Hemoglobin 31.0 PG (27.0-34.0) 30.3 PG (27.0-34.0) Mean Corpuscular Hemoglobin Concent 34.7 % (32.0-36.0) 34.5 % (32.0-36.0) Red Cell Distribution Width 16.6 % (11.6-17.2) 16.6 % (11.6-17.2) Platelet Count 256 TH/MM3 (150-450) 240 TH/MM3 (150-450) Mean Platelet Volume 7.1 FL (7.0-11.0) 7.5 FL (7.0-11.0) Neutrophils (%) (Auto) 79.3 % (16.0-70.0) Lymphocytes (%) (Auto) 12.1 % (9.0-44.0) Monocytes (%) (Auto) 8.2 % (0.0-8.0) Eosinophils (%) (Auto) 0.2 % (0.0-4.0) Basophils (%) (Auto) 0.2 % (0.0-2.0) Neutrophils # (Auto) 8.7 TH/MM3 (1.8-7.7) Lymphocytes # (Auto) 1.3 TH/MM3 (1.0-4.8) Monocytes # (Auto) 0.9 TH/MM3 (0-0.9) Eosinophils # (Auto) 0.0 TH/MM3 (0-0.4) Basophils # (Auto) 0.0 TH/MM3 (0-0.2) CBC Comment DIFF FINAL Differential Comment Blood Urea Nitrogen 38 MG/DL (7-18) Creatinine 1.38 MG/DL (0.50-1.00) Random Glucose 108 MG/DL (74-106) Total Protein 6.6 GM/DL (6.4-8.2) Albumin 3.2 GM/DL (3.4-5.0) Calcium Level 8.4 MG/DL (8.5-10.1) Alkaline Phosphatase 83 U/L (45-117) Aspartate Amino Transf (AST/SGOT) 32 U/L (15-37) Alanine Aminotransferase (ALT/SGPT) 19 U/L (10-53) Total Bilirubin 0.9 MG/DL (0.2-1.0) Sodium Level 121 MEQ/L (136-145) Potassium Level 4.0 MEQ/L (3.5-5.1) Chloride Level 83 MEQ/L (98-107) Carbon Dioxide Level 20.7 MEQ/L (21.0-32.0) Anion Gap 17 MEQ/L (5-15) Estimat Glomerular Filtration Rate 37 ML/MIN (>89) Lactic Acid Level 0.8 mmol/L (0.4-2.0) Total Creatine Kinase 210 U/L (26-192) Creatine Kinase MB 8.6 NG/ML (0.5-3.6) Creatine Kinase MB % 4.1 % (0.0-4.0) Troponin I 0.22 NG/ML (0.02-0.05) 0.18 NG/ML (0.02-0.05) B-Type Natriuretic Peptide 822 PG/ML (0-100) Lipase 135 U/L (73-393) Ethyl Alcohol Level LESS THAN 3 MG/DL (0-5) Urine Color YELLOW (YELLW/STRAW) Urine Turbidity CLEAR (CLEAR) Urine pH 5.5 (5.0-8.5) Urine Specific [place] 1.015 (1.002-1.035) Urine Protein 30 mg/dL (NEG-TRACE) Urine Glucose (UA) NEG mg/dL (NEG) Urine Ketones 10 mg/dL (NEG) Urine Occult Blood NEG (NEG) Urine Nitrite NEG (NEG) Urine Bilirubin NEG (NEG) Urine Urobilinogen LESS THAN 2.0 MG/DL (LESS Urine Leukocyte Esterase NEG (NEG) Urine RBC 1 /hpf (0-3) Urine WBC 2 /hpf (0-5) Urine Squamous Epithelial Cells <1 /hpf (0-5) Urine Hyaline Casts 1 /lpf (RARE) Urine Mucus FEW /lpf (OCC) Microscopic Urinalysis Comment CATH-CULT NOT IND Hematology Comments Prothrombin Time 9.7 SEC (9.8-11.6) Prothromb Time International Ratio 1.0 RATIO Activated Partial Thromboplast Time 21.1 SEC (24.3-30.1) Test 07/30/17 11:40 07/30/17 15:04 07/30/17 19:16 07/31/17 01:57 Troponin I 0.15 NG/ML (0.02-0.05) Activated Partial Thromboplast Time 25.0 SEC (24.3-30.1) Sodium Level 125 MEQ/L (136-145) 130 MEQ/L (136-145) Test 07/31/17 04:22 07/31/17 14:25 White Blood Count 5.8 TH/MM3 (4.0-11.0) Red Blood Count 3.54 MIL/MM3 (4.00-5.30) Hemoglobin 10.6 GM/DL (11.6-15.3) Hematocrit 31.5 % (35.0-46.0) Mean Corpuscular Volume 89.0 FL (80.0-100.0) Mean Corpuscular Hemoglobin 29.9 PG (27.0-34.0) Mean Corpuscular Hemoglobin Concent 33.6 % (32.0-36.0) Red Cell Distribution Width 16.8 % (11.6-17.2) Platelet Count 244 TH/MM3 (150-450) Mean Platelet Volume 7.6 FL (7.0-11.0) Neutrophils (%) (Auto) 62.9 % (16.0-70.0) Lymphocytes (%) (Auto) 25.3 % (9.0-44.0) Monocytes (%) (Auto) 9.8 % (0.0-8.0) Eosinophils (%) (Auto) 1.8 % (0.0-4.0) Basophils (%) (Auto) 0.2 % (0.0-2.0) Neutrophils # (Auto) 3.6 TH/MM3 (1.8-7.7) Lymphocytes # (Auto) 1.5 TH/MM3 (1.0-4.8) Monocytes # (Auto) 0.6 TH/MM3 (0-0.9) Eosinophils # (Auto) 0.1 TH/MM3 (0-0.4) Basophils # (Auto) 0.0 TH/MM3 (0-0.2) CBC Comment DIFF FINAL Differential Comment Prothrombin Time 10.1 SEC (9.8-11.6) Prothromb Time International Ratio 1.0 RATIO Activated Partial Thromboplast Time 24.3 SEC (24.3-30.1) Blood Urea Nitrogen 22 MG/DL (7-18) Creatinine 0.83 MG/DL (0.50-1.00) Random Glucose 91 MG/DL (74-106) Total Protein 5.5 GM/DL (6.4-8.2) Albumin 2.5 GM/DL (3.4-5.0) Calcium Level 7.6 MG/DL (8.5-10.1) Phosphorus Level 1.9 MG/DL (2.5-4.9) Magnesium Level 1.6 MG/DL (1.5-2.5) Alkaline Phosphatase 64 U/L (45-117) Aspartate Amino Transf (AST/SGOT) 29 U/L (15-37) Alanine Aminotransferase (ALT/SGPT) 15 U/L (10-53) Total Bilirubin 0.6 MG/DL (0.2-1.0) Sodium Level 130 MEQ/L (136-145) 131 MEQ/L (136-145) Potassium Level 3.6 MEQ/L (3.5-5.1) Chloride Level 98 MEQ/L (98-107) Carbon Dioxide Level 22.9 MEQ/L (21.0-32.0) Anion Gap 9 MEQ/L (5-15) Estimat Glomerular Filtration Rate 66 ML/MIN (>89) . Result Diagram: 07/31/17 0422 07/31/17 1425 Microbiology Microbiology Date/Time Source Procedure Growth Status 07/30/17 01:30 Blood Peripheral Aerobic Blood Culture - Preliminary NO GROWTH IN 1 DAY Resulted 07/30/17 01:30 Blood Peripheral Anaerobic Blood Culture - Preliminary NO GROWTH IN 1 DAY Resulted 07/30/17 01:25 Blood Other Aerobic Blood Culture - Preliminary NO GROWTH IN 1 DAY Resulted 07/30/17 01:25 Blood Other Anaerobic Blood Culture - Preliminary NO GROWTH IN 1 DAY Resulted . Imaging Last [address] 07/30/17 0000 Signed Impressions: Service Date/Time: Sunday, July 30, 2017 03:20 - CONCLUSION: 1. No acute hemorrhage, mass or evidence of infarction. 2. Atrophy and chronic small vessel ischemic change. Dayne Jordan MD Foot X-Ray 07/30/17 0000 Signed Impressions: Service Date/Time: Sunday, July 30, 2017 02:13 - CONCLUSION: Negative limited two-view exam . Dayne Jordan MD Chest X-Ray 07/30/17 0000 Signed Impressions: Service Date/Time: Sunday, July 30, 2017 02:05 - CONCLUSION: No acute disease. Dayne Jordan MD Ankle X-Ray 07/30/17 0000 Signed Impressions: Service Date/Time: Sunday, July 30, 2017 02:11 - CONCLUSION: 1. Subtle nondisplaced fracture through the distal fibula. Dayne Jordan MD Abdomen/Pelvis CT 07/30/17 0000 Signed Impressions: Service Date/Time: Sunday, July 30, 2017 03:24 - CONCLUSION: 1. No acute visceral injury. 2. Healing fractures of the anterior right acetabulum and right inferior pubic rami. Dayne Jordan MD . Patient/Family Conference Present at Family Conference: Palliative care PROGRAM ASSOCIATE, Alisa Haji, attempted to contact patient's . A message was left on his voicemail with palliative care contact information. . Family Conference Location: Telephone Issues Discussed: * Palliative care role, purpose, approach * Palliative care contact information provided . \ Assessment and Plan Disease Oriented Problem List: (1) Hyponatremia (2) NSTEMI (non-ST elevated myocardial infarction) (3) Acute kidney injury (4) Fracture of right ankle, lateral malleolus (5) Chronic pain syndrome Symptom Scale: (1) Confusion 0-10 Scale: Unable to quantify (2) Pain 0-10 Scale: Unable to quantify (3) Debility 0-10 Scale: Unable to quantify Pertinent Non-Medical Issues Psychosocial: Patient is . She had 2 children. One daughter is living and one child is . Spiritual: Catholic shreya Legal: Per [place] statutes, in the absence of written advanced directives healthcare proxy decision making falls to the patient's Ethical issues impacting care: No known ethical issues impacting care. . Important Contacts Blas Ascencio, spouse: [phone] Denise Unger, sister: [phone] or [phone] . Prognosis Patient is an elderly female with multiple comorbid conditions who has experienced a recent, acute decline as evidenced by progressively increased confusion as well recurrent falls with injury. It is suspected that the patient may have had a recent, subacute AL. Given patient's age and poor functional status in addition to her complex medical history, she is at risk for ongoing decline and current medical recommendations are conservative. . Code Status: Full Code Plan * FULL CODE * Per [place] statutes, in the absence of written advanced directives healthcare proxy decision making would fall to the patient's * AGGRESSIVE GOALS pending conversation with patient/family * Attempted to contact patient's spouse; message left on his voicemail with palliative care contact information * Symptom management: = Debility: Patient has a frail, cachectic appearance. She has a history of recent falls. Imaging showed healing pubic rami fractures and a nondisplaced right distal fibula fracture. Orthopedics was consulted and recommended nonoperative treatment at this time and physical therapy. Patient may weight-bear as tolerated on right leg when fracture boot is in place. Physical therapy following = Pain: Patient initially reporting pain in lower extremities bilaterally, right >left. Pain was exacerbated with movement. Imaging showed healing pubic rami fractures and a nondisplaced right distal fibula fracture. Patient has a history of recent falls as evidence multiple areas of bruising. PRN [place] and IV morphine are available but have not been utilized. = Confusion: Multifactoral. Contributing factors may include electrolyte imbalances, circulatory disorders, dementia, depression, medication related. CT of the brain was unremarkable for acute processes. Continue to monitor. * Palliative care will continue to follow this patient throughout her hospitalization to establish trust, assist with symptom management and clarification of medical treatment goals. . Thank you for the opportunity to participate in the care of Ms. Ascencio. Rosalina Arroyo Jul 31, 2017 17:19
--- NOTE | 2017-07-31 17:36 | ECHRPT ---
Indication: Coronary Atherosclerosis CONCLUSIONS The left ventricular systolic function is moderately reduced with an estimated ejection fraction in the range of 40-45%. Apical akinesis. Normal left ventricular size. Mild concentric left ventricular hypertrophy. Posterior mitral valve leaflet prolapse. Moderate mitral valve regurgitation. Mitral annular calcification is present. Diffuse calcification of the aortic valve. Mild to moderate aortic valve stenosis. Aortic valve area is 0.87 cm. Aortic valve mean gradient is 10 mmHg. There is moderate to severe tricuspid valve regurgitation. The estimated pulmonary arterial pressure is 49.7 mmHg. BP: 108 / 65 HR: 83 Rhythm: Sinus MEASUREMENTS (Male / Female) Normal Values Technical Quality:Fair 2D ECHO LV Diastolic Diameter PLAX 4.2 cm 4.2 - 5.9 / 3.9 - 5.3 cm LV Systolic Diameter PLAX 3.5 cm IVS Diastolic Thickness 1.1 cm 0.6 - 1.0 / 0.6 - 0.9 cm LVPW Diastolic Thickness 1.1 cm 0.6 - 1.0 / 0.6 - 0.9 cm LV Relative Wall Thickness 0.5 RV Internal Dim ED PLAX 2.7 cm LVOT Diameter 1.8 cm M-MODE Aortic Root Diameter MM 2.7 cm LA Systolic Diameter MM 2.8 cm LA Ao Ratio MM 1.0 AV Cusp Separation MM 1.0 cm DOPPLER AV Peak Velocity 235.0 cm/s AV Peak Gradient 22.1 mmHg AV Mean Gradient 10.0 mmHg AV Velocity Time Integral 35.3 cm LVOT Peak Velocity 66.6 cm/s LVOT Peak Gradient 1.8 mmHg LVOT Velocity Time Integral 12.0 cm AV Area Cont Eq vti 0.9 cm AV Area Cont Eq pk 0.7 cm MV Area PHT 5.6 cm Mitral E Point Velocity 73.2 cm/s Mitral A Point Velocity 96.6 cm/s Mitral E to A Ratio 0.8 LV E' Lateral Velocity 5.4 cm/s Mitral E to LV E' Lateral Ratio 13.7 LV E' Septal Velocity 4.8 cm/s Mitral E to LV E' Septal Ratio 15.3 TR Peak Velocity 315.0 cm/s TR Peak Gradient 39.7 mmHg Right Atrial Pressure 10.0 mmHg Pulmonary Artery Systolic Pressu 49.7 mmHg Right Ventricular Systolic Press 49.7 mmHg FINDINGS LEFT VENTRICLE The left ventricular systolic function is moderately reduced with an estimated ejection fraction in the range of 40-45%. Apical akinesis. Normal left ventricular size. Mild concentric left ventricular hypertrophy. RIGHT VENTRICLE Normal right ventricular size and systolic function. LEFT ATRIUM The left atrial size is normal. RIGHT ATRIUM The right atrial size is normal. ATRIAL SEPTUM Normal atrial septal thickness without atrial level shunting by limited color doppler interrogation. AORTA The aortic root and proximal ascending aorta are normal in size on limited imaging. MITRAL VALVE Posterior mitral valve leaflet prolapse. Moderate mitral valve regurgitation. Mitral annular calcification is present. AORTIC VALVE Trileaflet aortic valve. Diffuse calcification of the aortic valve. Mild to moderate aortic valve stenosis. Aortic valve area is 0.87 cm. Aortic valve mean gradient is 10 mmHg. TRICUSPID VALVE Structurally normal tricuspid valve. There is moderate to severe tricuspid valve regurgitation. The estimated pulmonary arterial pressure is 49.7 mmHg. PULMONARY VALVE No pulmonary valve regurgitation or stenosis. VESSELS The inferior vena cava is normal in size. PERICARDIUM No pericardial effusion. Damian Gaxiola MD, FACC (Electronically Signed) Final Date:31 July 2017 17:35
[2017-07-31] MEDS: ATORVASTATIN 40 MG TAB PO SCH (21:20)
[2017-08-01] VITALS (10 sets, daily range): BP systolic 99–129; BP diastolic 52–72; PULSE 69–93; RESP 16–21; TEMP 97.2–98.1; O2SAT 93–95
--- NOTE | 2017-08-01 00:34 | EKG ---
Date Performed: 07/30/2017 Time Performed: 11:25:49 PTAGE: 81 years EKG: Sinus rhythm SEPTAL MYOCARDIAL INFARCTION ACUTE [place] PREVIOUS TRACING : 07/30/2017 06.48 DOCTOR: Ingrid Malagon Interpretating Date/Time 08/01/2017 00:19:44
[2017-08-01] MEDS: CHLORHEXIDINE GLUCONATE 2 % 1 PACK (2 CLOTHS) TOP SCH (04:00)
[2017-08-01] MEDS: CITALOPRAM HYDROBROMIDE 40 MG TAB PO SCH (10:51)
[2017-08-01] MEDS: DOCUSATE SODIUM 50 MG/SENNA 8.6 MG TAB PO SCH ×2 (10:52→21:34)
[2017-08-01] MEDS: CLOPIDOGREL 75 MG TAB PO SCH (10:52)
[2017-08-01] MEDS: METOPROLOL TARTRATE 100 MG TAB PO SCH (10:52)
[2017-08-01] MEDS: ASPIRIN 81 MG CHEW TAB CHEW SCH (10:52)
[2017-08-01] MEDS: GABAPENTIN 300 MG CAP PO SCH ×2 (10:52→21:34)
[2017-08-01] MEDS: SODIUM CHLORIDE 0.9% FLUSH 10 ML FLUSH IV FLUSH SCH ×2 (10:53→21:35)
--- NOTE | 2017-08-01 11:23 | HHI.HCPN ---
Reason for visit a. To assist with evaluation and management of symptoms including: Confusion , pain, debility b. To assist medical decision maker(s) with: better understanding of current medical conditions; weighing benefits/burdens of medical treatment options; making medical treatment decisions. . Subjective/Interval History Patient is a 81-year-old female with depression, questionable TIA, CAD, chronic back pain, degenerative disc disease, hypertension and diabetes who presented to [facility] ED via EMS on 07/30/2017 for evaluation of altered mental status and recent falls. The patient had ST elevations noted in V2 and V3 with Q waves in lead 2, 3, aVF, V2, and V3. Patient denied chest pain. Dr. Bryant from emergency department discussed the EKG with the on-call information assurance engineer, Dr. Hernandez. Per chart documentation the patient had an NV, subacute, possibly the last several weeks. Patient did have evidence of trauma so she underwent a workup for possible bleeding intra-abdominally and/or and intracranially. CT of the brain was unremarkable for acute hemorrhage. CT abdomen/pelvis revealed healing right acetabulum and right inferior pubic rami. Since there was no evidence of bleeding, the patient received aspirin orally. X-ray of the foot and chest were unremarkable. Patient was admitted for further evaluation (specifically cardiac) and medical management. Patient was admitted to the intensive care unit overnight secondary to her altered mental status and low sodium of 121. Follow-up visit for symptom management and clarification of medical treatment goals. Patient seen in room 1531. She has no complaints; denies pain. Dr. Hay and a medical student were present during a portion of my visit. She is awake and her eyes are open. Patient answers simple questions but remains confused. She states that she is "lying on the floor and she cannot get up." She indicates she is angry with her because he was supposed to come up and "move in" with her but he did not. Afebrile. No leukocytosis. Blood cultures negative to date. Sodium: 130, total protein: 5.5, albumin 2.5 Palliative care met with patient's spouse and sister to discuss patient's hospital course and overall prognosis. They state the patient was hospitalized sometime within the past 6 months; upon discharge the patient was transferred to [facility], and the family feels the patient improved with rehabilitation. The patient's believes the patient's confusion is due to undiagnosed dementia, however her sister is concerned the patient may be taking her medications inappropriately. Sister, Denise, alleges the patient took 100 over- the-counter sleeping pills (Unisom) within a 7 day period. Altered mentation is likely multifactorial. Discussed rehabilitation vs. chcf placement vs. home with private caregiver. Hospice was introduced. Family would like patient to be transferred to SNF (preferably rehab) when stable, further medical treatment goals will depend on whether or not the patient tolerates rehab. If patient does return home she will need to have someone to manage her medication for her, and the family is aware of this. Patient's is extremely [place] and forgetful; he is unable to communicate effectively via telephone. Sister, Denise, states she has completed written advance directives for the patient and will bring in copies of these documents to be scanned into the patient's EMR. She states she is the alternate HCS decision-maker. . . Family/friend interactions See interval history . Advance Directives Advance Directive Specifics Health Care Surrogate(s): Per [place] statutes, in the absence of written advanced directives healthcare proxy decision making falls to the patient's spouse. . Documented care wishes: At this time it does not appear the patient ever completed written advanced directives, will discuss further during family meeting. . Significant change in goals: Discharge to SNF for rehabilitation . Objective Vital Signs Date Time Temp Pulse Resp B/P (MAP) Pulse Ox O2 Delivery O2 Flow Rate FiO2 08/01/17 08:24 97.5 76 16 110/59 (76) 93 08/01/17 04:00 97.4 82 17 114/72 (86) 95 08/01/17 00:00 97.2 77 17 129/70 (89) 95 07/31/17 22:58 Room Air 07/31/17 20:00 97.4 75 17 93/49 (64) 96 07/31/17 17:19 97.7 73 16 107/59 (75) 96 07/31/17 16:00 71 07/31/17 16:00 73 15 111/58 (75) 94 07/31/17 14:00 72 07/31/17 12:00 97.6 93 18 128/73 (91) 98 07/31/17 12:00 93 Intake & Output 08/01/17 08/01/17 07:00 19:00 Intake Total 120 ml Output Total 1025 ml Balance -905 ml Intake Oral 120 ml Output Urine Total 1025 ml # Voids 1 # Bowel Movements 0 0 . Physical Exam CONSTITUTIONAL/GENERAL: This is a frail appearing, elderly female patient who is confused. TUBES/LINES/DRAINS: PIV 2 SKIN: Ecchymoses on upper extremities; skin tear on left lower extremity as well as bruising on the lateral distal left foot. Chronic skin changes noted to the anterior aspect the lower extremity is bilateral. Skin temperature appropriate. Not diaphoretic. HEAD: Atraumatic. Normocephalic. EYES: Pupils equal and round and reactive. Extraocular motions intact. No scleral icterus. No injection or drainage. Fundi not examined. ENT: Hearing grossly normal. Nose without bleeding or purulent drainage. NECK: Trachea midline. Supple, nontender. No palpable thyroid enlargement or nodularity. CARDIOVASCULAR: Regular rate and rhythm without murmurs, gallops, or rubs. No JVD. Peripheral pulses symmetric. RESPIRATORY/CHEST: Symmetric, unlabored respirations. Clear to auscultation. Breath sounds equal bilaterally. No wheezes, rales, or rhonchi. GASTROINTESTINAL: Abdomen soft, non-tender, nondistended. No guarding. Bowel sounds present. GENITOURINARY: Without palpable bladder distension. Yin catheter in place. MUSCULOSKELETAL: Extremities without clubbing, cyanosis, or edema. No mottling or clubbing. LYMPHATICS: No palpable cervical or supraclavicular adenopathy. NEUROLOGICAL: Awake, eyes are open. Patient answers simple questions but remains confused. She states that she is "lying on the floor and she cannot get up." She indicates she is angry with her because he was supposed to come up and "move in"with her but he did not. PSYCHIATRIC: No obvious anxiety/depression. No apparent hallucinations or other psychotic thought process. . Diagnostic Tests Laboratory Laboratory Tests Test 07/30/17 01:24 07/30/17 02:08 07/30/17 06:45 07/30/17 10:10 White Blood Count 11.0 TH/MM3 (4.0-11.0) 10.4 TH/MM3 (4.0-11.0) Red Blood Count 4.19 MIL/MM3 (4.00-5.30) 3.82 MIL/MM3 (4.00-5.30) Hemoglobin 13.0 GM/DL (11.6-15.3) 11.6 GM/DL (11.6-15.3) Hematocrit 37.5 % (35.0-46.0) 33.6 % (35.0-46.0) Mean Corpuscular Volume 89.3 FL (80.0-100.0) 87.9 FL (80.0-100.0) Mean Corpuscular Hemoglobin 31.0 PG (27.0-34.0) 30.3 PG (27.0-34.0) Mean Corpuscular Hemoglobin Concent 34.7 % (32.0-36.0) 34.5 % (32.0-36.0) Red Cell Distribution Width 16.6 % (11.6-17.2) 16.6 % (11.6-17.2) Platelet Count 256 TH/MM3 (150-450) 240 TH/MM3 (150-450) Mean Platelet Volume 7.1 FL (7.0-11.0) 7.5 FL (7.0-11.0) Neutrophils (%) (Auto) 79.3 % (16.0-70.0) Lymphocytes (%) (Auto) 12.1 % (9.0-44.0) Monocytes (%) (Auto) 8.2 % (0.0-8.0) Eosinophils (%) (Auto) 0.2 % (0.0-4.0) Basophils (%) (Auto) 0.2 % (0.0-2.0) Neutrophils # (Auto) 8.7 TH/MM3 (1.8-7.7) Lymphocytes # (Auto) 1.3 TH/MM3 (1.0-4.8) Monocytes # (Auto) 0.9 TH/MM3 (0-0.9) Eosinophils # (Auto) 0.0 TH/MM3 (0-0.4) Basophils # (Auto) 0.0 TH/MM3 (0-0.2) CBC Comment DIFF FINAL Differential Comment Blood Urea Nitrogen 38 MG/DL (7-18) Creatinine 1.38 MG/DL (0.50-1.00) Random Glucose 108 MG/DL (74-106) Total Protein 6.6 GM/DL (6.4-8.2) Albumin 3.2 GM/DL (3.4-5.0) Calcium Level 8.4 MG/DL (8.5-10.1) Alkaline Phosphatase 83 U/L (45-117) Aspartate Amino Transf (AST/SGOT) 32 U/L (15-37) Alanine Aminotransferase (ALT/SGPT) 19 U/L (10-53) Total Bilirubin 0.9 MG/DL (0.2-1.0) Sodium Level 121 MEQ/L (136-145) Potassium Level 4.0 MEQ/L (3.5-5.1) Chloride Level 83 MEQ/L (98-107) Carbon Dioxide Level 20.7 MEQ/L (21.0-32.0) Anion Gap 17 MEQ/L (5-15) Estimat Glomerular Filtration Rate 37 ML/MIN (>89) Lactic Acid Level 0.8 mmol/L (0.4-2.0) Total Creatine Kinase 210 U/L (26-192) Creatine Kinase MB 8.6 NG/ML (0.5-3.6) Creatine Kinase MB % 4.1 % (0.0-4.0) Troponin I 0.22 NG/ML (0.02-0.05) 0.18 NG/ML (0.02-0.05) B-Type Natriuretic Peptide 822 PG/ML (0-100) Lipase 135 U/L (73-393) Ethyl Alcohol Level LESS THAN 3 MG/DL (0-5) Urine Color YELLOW (YELLW/STRAW) Urine Turbidity CLEAR (CLEAR) Urine pH 5.5 (5.0-8.5) Urine Specific [place] 1.015 (1.002-1.035) Urine Protein 30 mg/dL (NEG-TRACE) Urine Glucose (UA) NEG mg/dL (NEG) Urine Ketones 10 mg/dL (NEG) Urine Occult Blood NEG (NEG) Urine Nitrite NEG (NEG) Urine Bilirubin NEG (NEG) Urine Urobilinogen LESS THAN 2.0 MG/DL (LESS Urine Leukocyte Esterase NEG (NEG) Urine RBC 1 /hpf (0-3) Urine WBC 2 /hpf (0-5) Urine Squamous Epithelial Cells <1 /hpf (0-5) Urine Hyaline Casts 1 /lpf (RARE) Urine Mucus FEW /lpf (OCC) Microscopic Urinalysis Comment CATH-CULT NOT IND Hematology Comments Prothrombin Time 9.7 SEC (9.8-11.6) Prothromb Time International Ratio 1.0 RATIO Activated Partial Thromboplast Time 21.1 SEC (24.3-30.1) Test 07/30/17 11:40 07/30/17 15:04 07/30/17 19:16 07/31/17 01:57 Troponin I 0.15 NG/ML (0.02-0.05) Activated Partial Thromboplast Time 25.0 SEC (24.3-30.1) Sodium Level 125 MEQ/L (136-145) 130 MEQ/L (136-145) Test 07/31/17 04:22 07/31/17 14:25 07/31/17 21:01 08/01/17 02:34 White Blood Count 5.8 TH/MM3 (4.0-11.0) Red Blood Count 3.54 MIL/MM3 (4.00-5.30) Hemoglobin 10.6 GM/DL (11.6-15.3) Hematocrit 31.5 % (35.0-46.0) Mean Corpuscular Volume 89.0 FL (80.0-100.0) Mean Corpuscular Hemoglobin 29.9 PG (27.0-34.0) Mean Corpuscular Hemoglobin Concent 33.6 % (32.0-36.0) Red Cell Distribution Width 16.8 % (11.6-17.2) Platelet Count 244 TH/MM3 (150-450) Mean Platelet Volume 7.6 FL (7.0-11.0) Neutrophils (%) (Auto) 62.9 % (16.0-70.0) Lymphocytes (%) (Auto) 25.3 % (9.0-44.0) Monocytes (%) (Auto) 9.8 % (0.0-8.0) Eosinophils (%) (Auto) 1.8 % (0.0-4.0) Basophils (%) (Auto) 0.2 % (0.0-2.0) Neutrophils # (Auto) 3.6 TH/MM3 (1.8-7.7) Lymphocytes # (Auto) 1.5 TH/MM3 (1.0-4.8) Monocytes # (Auto) 0.6 TH/MM3 (0-0.9) Eosinophils # (Auto) 0.1 TH/MM3 (0-0.4) Basophils # (Auto) 0.0 TH/MM3 (0-0.2) CBC Comment DIFF FINAL Differential Comment Prothrombin Time 10.1 SEC (9.8-11.6) Prothromb Time International Ratio 1.0 RATIO Activated Partial Thromboplast Time 24.3 SEC (24.3-30.1) Blood Urea Nitrogen 22 MG/DL (7-18) Creatinine 0.83 MG/DL (0.50-1.00) Random Glucose 91 MG/DL (74-106) Total Protein 5.5 GM/DL (6.4-8.2) Albumin 2.5 GM/DL (3.4-5.0) Calcium Level 7.6 MG/DL (8.5-10.1) Phosphorus Level 1.9 MG/DL (2.5-4.9) Magnesium Level 1.6 MG/DL (1.5-2.5) Alkaline Phosphatase 64 U/L (45-117) Aspartate Amino Transf (AST/SGOT) 29 U/L (15-37) Alanine Aminotransferase (ALT/SGPT) 15 U/L (10-53) Total Bilirubin 0.6 MG/DL (0.2-1.0) Sodium Level 130 MEQ/L (136-145) 131 MEQ/L (136-145) 130 MEQ/L (136-145) 132 MEQ/L (136-145) Potassium Level 3.6 MEQ/L (3.5-5.1) Chloride Level 98 MEQ/L (98-107) Carbon Dioxide Level 22.9 MEQ/L (21.0-32.0) Anion Gap 9 MEQ/L (5-15) Estimat Glomerular Filtration Rate 66 ML/MIN (>89) Thyroid Stimulating Hormone 3rd Gen 1.600 uIU/ML (0.358-3.740) Test 08/01/17 10:59 . Result Diagram: 07/31/17 0422 08/01/17 0234 Microbiology Microbiology Date/Time Source Procedure Growth Status 07/30/17 01:30 Blood Peripheral Aerobic Blood Culture - Preliminary NO GROWTH IN 2 DAYS Resulted 07/30/17 01:30 Blood Peripheral Anaerobic Blood Culture - Preliminary NO GROWTH IN 2 DAYS Resulted 07/30/17 01:25 Blood Other Aerobic Blood Culture - Preliminary NO GROWTH IN 2 DAYS Resulted 07/30/17 01:25 Blood Other Anaerobic Blood Culture - Preliminary NO GROWTH IN 2 DAYS Resulted Imaging Last [address] 07/30/17 0000 Signed Impressions: Service Date/Time: Sunday, July 30, 2017 03:20 - CONCLUSION: 1. No acute hemorrhage, mass or evidence of infarction. 2. Atrophy and chronic small vessel ischemic change. Dayne Jordan MD Foot X-Ray 07/30/17 0000 Signed Impressions: Service Date/Time: Sunday, July 30, 2017 02:13 - CONCLUSION: Negative limited two-view exam . Dayne Jordan MD Chest X-Ray 07/30/17 0000 Signed Impressions: Service Date/Time: Sunday, July 30, 2017 02:05 - CONCLUSION: No acute disease. Dayne Jordan MD Ankle X-Ray 07/30/17 0000 Signed Impressions: Service Date/Time: Sunday, July 30, 2017 02:11 - CONCLUSION: 1. Subtle nondisplaced fracture through the distal fibula. Dayne Jordan MD Abdomen/Pelvis CT 07/30/17 0000 Signed Impressions: Service Date/Time: Sunday, July 30, 2017 03:24 - CONCLUSION: 1. No acute visceral injury. 2. Healing fractures of the anterior right acetabulum and right inferior pubic rami. Dayne Jordan MD . Assessment and Plan Disease Oriented Problem List: (1) Hyponatremia (2) NSTEMI (non-ST elevated myocardial infarction) (3) Acute kidney injury (4) Fracture of right ankle, lateral malleolus (5) Chronic pain syndrome Symptom Scale: (1) Confusion 0-10 Scale: Unable to quantify (2) Pain 0-10 Scale: Unable to quantify (3) Debility 0-10 Scale: Unable to quantify Pertinent Non-Medical Issues Psychosocial: Patient is . She had 2 children. One daughter is living and one child is . Spiritual: Jehov[employer] Witness shreya Legal: Per [place] statutes, in the absence of written advanced directives healthcare proxy decision making falls to the patient's Ethical issues impacting care: No known ethical issues impacting care. . Important Contacts Denise Unger, sister: [phone] or [phone] Kristi, Sister: [phone] Blas Ascencio, spouse: [phone] (SPOUSE IS [place] AND HAS DIFFICULTY COMMUNICATING VIA TELEPHONE; HE REQUEST THAT HIS COLETTE BE CALLED FIRST) . Prognosis Patient is an elderly female with multiple comorbid conditions who has experienced a recent, acute decline as evidenced by progressively increased confusion as well recurrent falls with injury. It is suspected that the patient may have had a recent, subacute NV. Given patient's age and poor functional status in addition to her complex medical history, she is at risk for ongoing decline and current medical recommendations are conservative. . Code Status: Full Code Plan * FULL CODE * Per [place] statutes, in the absence of written advanced directives healthcare proxy decision making would fall to the patient's . Sister, Denise, states she has completed written advance directives for the patient and will bring in copies of these documents to be scanned into the patient's EMR. She states she is the alternate HCS decision-maker. * Palliative care met with patient's spouse and sister to discuss patient's hospital course and overall prognosis. They state the patient was hospitalized sometime within the past 6 months; upon discharge the patient was transferred to [facility] [place] [facility], and the family feels the patient improved with rehabilitation. The patient's believes the patient's confusion is due to undiagnosed dementia, however her sister is concerned the patient may be taking her medications inappropriately. Sister, Denise, alleges the patient took 100 over- the-counter sleeping pills (Unisom) within a 7 day period. Altered mentation is likely multifactorial. * Discussed rehabilitation vs. chcf placement vs. home with private caregiver. Hospice was introduced. Family would like patient to be transferred to SNF (preferably rehab) when stable, further medical treatment goals will depend on whether or not the patient tolerates rehab. If patient does return home she will need to have someone to manage her medication for her, and the family is aware of this. * Blas Ascencio, spouse: [phone] (SPOUSE IS [place] AND HAS DIFFICULTY COMMUNICATING VIA TELEPHONE; HE REQUEST THAT HIS COLETTE BE CALLED FIRST) Sisters: Denise at [phone] or [phone] OR Kristi at [phone] * Discussed patient with physical therapist, nurse, case management and Dr. Hay. * Symptom management: = Debility: Patient has a frail, cachectic appearance. She has a history of recent falls. Imaging showed healing pubic rami fractures and a nondisplaced right distal fibula fracture. Orthopedics was consulted and recommended nonoperative treatment at this time and physical therapy. Patient may weight-bear as tolerated on right leg when fracture boot is in place. Physical therapy following = Pain: Patient initially reporting pain in lower extremities bilaterally, right >left. Pain was exacerbated with movement. Imaging showed healing pubic rami fractures and a nondisplaced right distal fibula fracture. Patient has a history of recent falls as evidence multiple areas of bruising. Patient denied pain on exam today 08/01/2017. PRN [place] and IV morphine are available but have not been utilized. = Confusion: Multifactoral. Contributing factors may include electrolyte imbalances, circulatory disorders, dementia, depression, medication related. CT of the brain was unremarkable for acute processes, atrophy and chronic small vessel ischemic changes were noted. Continue to monitor. * Palliative care will continue to follow this patient throughout her hospitalization to establish trust, assist with symptom management and clarification of medical treatment goals. . Attestation To help prompt me to consider important information that might be impacting today's encounter and assessment, information from prior notes written by myself or my colleagues may have been "brought forward" into today's note. My signature on this note, however, is an attestation that I personally performed the exam, history, and/or decision-making noted today, and, unless otherwise indicated, the interactions with patient, family, and staff as well as the review of records all occurred today. I also attest that the listed assessment and stated plan reflect my best clinical judgment today based on the combination of historical information, prior notes, and today's exam/ interactions. When time spent is documented, it refers only to time spent today by the signer, or if indicated, combined time spent today by collaborating physician/nurse practitioner. . Rosalina Arroyo Aug 01, 2017 11:23
[2017-08-01] MEDS: FAMOTIDINE 20 MG TAB PO SCH ×2 (13:00→21:34)
[2017-08-01] MEDS: ATORVASTATIN 40 MG TAB PO SCH (21:34)
--- NOTE | 2017-08-01 21:57 | HHI.PR ---
Subjective Remarks Follow up for hyponatremia, subacute IA, DM. Patient is currently doing well. However, she remains disoriented. No fever, chills. Objective Vitals Vital Signs Date Time Temp Pulse Resp B/P (MAP) Pulse Ox O2 Delivery O2 Flow Rate FiO2 08/01/17 21:15 89 20 125/58 (80) 95 08/01/17 16:26 97.7 70 18 105/55 (72) 94 08/01/17 15:51 69 08/01/17 12:40 97.5 93 18 115/64 (81) 94 08/01/17 08:24 97.5 76 16 110/59 (76) 93 08/01/17 08:00 82 08/01/17 04:00 97.4 82 17 114/72 (86) 95 08/01/17 00:00 97.2 77 17 129/70 (89) 95 07/31/17 22:58 Room Air I/O 07/31/17 07/31/17 07/31/17 08/01/17 08/01/17 08/01/17 07:00 15:00 23:00 07:00 15:00 23:00 Intake Total 0 ml 806 ml 120 ml 120 ml Output Total 1200 ml 1000 ml 100 ml 1025 ml Balance -1200 ml -194 ml 20 ml -905 ml Intake Oral 0 ml 480 ml 120 ml 120 ml IV Total 326 ml Output Urine Total 1200 ml 1000 ml 100 ml 1025 ml # Voids 2 # Bowel Movements 0 0 0 Result Diagram: 07/31/17 0422 08/01/17 1512 Imaging Last Impressions Head CT 07/30/17 0000 Signed Impressions: Service Date/Time: Sunday, July 30, 2017 03:20 - CONCLUSION: 1. No acute hemorrhage, mass or evidence of infarction. 2. Atrophy and chronic small vessel ischemic change. Dayne Jordan MD Foot X-Ray 07/30/17 0000 Signed Impressions: Service Date/Time: Sunday, July 30, 2017 02:13 - CONCLUSION: Negative limited two-view exam . Dayne Jordan MD Chest X-Ray 07/30/17 0000 Signed Impressions: Service Date/Time: Sunday, July 30, 2017 02:05 - CONCLUSION: No acute disease. Dayne Jordan MD Ankle X-Ray 07/30/17 0000 Signed Impressions: Service Date/Time: Sunday, July 30, 2017 02:11 - CONCLUSION: 1. Subtle nondisplaced fracture through the distal fibula. Dayne Jordan MD Abdomen/Pelvis CT 07/30/17 0000 Signed Impressions: Service Date/Time: Sunday, July 30, 2017 03:24 - CONCLUSION: 1. No acute visceral injury. 2. Healing fractures of the anterior right acetabulum and right inferior pubic rami. Dayne Jordan MD Objective Remarks GENERAL: Alert, NAD. SKIN: Warm and dry. HEAD: Normocephalic. EYES: No scleral icterus. No injection or drainage. NECK: Supple, trachea midline. No JVD or lymphadenopathy. CARDIOVASCULAR: Regular rate and rhythm without murmurs, gallops, or rubs. RESPIRATORY: Breath sounds equal bilaterally. No accessory muscle use. GASTROINTESTINAL: Abdomen soft, non-tender, nondistended. MUSCULOSKELETAL: No cyanosis, or edema. BACK: Nontender without obvious deformity. No CVA tenderness. A/P Assessment and Plan Coronary artery disease - Subacute IA - Continue home dose aspirin and Plavix - Cardiology consultation --> medical management. - Metoprolol tartrate 100mg Daily. - Atorvastatin 40mg QHS. Hyponatremia - Na 121 improved to 134 Hypertension - Metoprolol 100mg Qday. - Norvasc 10mg Qday Depressions - Citalopram 40mg Qday. Hypothyroidism - Levothyroxine 50mcg Qday. Right lateral malleolus fracture - orthopedic surgery recs non-op management. Boot all the time. WBAT. Outpt F/U in 10-14 days. Full code. Pepcid. SCDs. Maru Hay DO Aug 01, 2017 21:57
[2017-08-02] VITALS: BP 126/66; PULSE 80; PULSE 82; RESP 17; TEMP 97.5; O2SAT 93
[2017-08-02 04:00] VITALS: BP 135/65; PULSE 82; RESP 18; TEMP 98.1; O2SAT 92
[2017-08-02] MEDS: CHLORHEXIDINE GLUCONATE 2 % 1 PACK (2 CLOTHS) TOP SCH (04:00)
[2017-08-02] MEDS: LEVOTHYROXINE SODIUM 50 MCG TAB PO SCH (06:37)
[2017-08-02 08:00] VITALS: BP 134/63; PULSE 90; RESP 16; TEMP 97.4; O2SAT 95
[2017-08-02] MEDS: ASPIRIN 81 MG CHEW TAB CHEW SCH (09:13)
[2017-08-02] MEDS: GABAPENTIN 300 MG CAP PO SCH (09:13)
[2017-08-02] MEDS: METOPROLOL TARTRATE 100 MG TAB PO SCH (09:13)
[2017-08-02] MEDS: FAMOTIDINE 20 MG TAB PO SCH (09:13)
[2017-08-02] MEDS: DOCUSATE SODIUM 50 MG/SENNA 8.6 MG TAB PO SCH (09:14)
[2017-08-02] MEDS: CLOPIDOGREL 75 MG TAB PO SCH (09:14)
[2017-08-02] MEDS: SODIUM CHLORIDE 0.9% FLUSH 10 ML FLUSH IV FLUSH SCH (09:14)
[2017-08-02] MEDS: CITALOPRAM HYDROBROMIDE 40 MG TAB PO SCH (09:14)
[2017-08-02 09:47] LABS: HEMATOCRIT 35.6 % (35.0-46.0); HEMOGLOBIN 11.8 GM/DL (11.6-15.3); MEAN CELL VOLUME 89.6 FL (80.0-100.0); MEAN CORPUSCULAR HEMOGLOBIN 29.6 PG (27.0-34.0); MEAN CORPUSCULAR HGB CONC 33.1 % (32.0-36.0); MEAN PLATELET VOLUME 6.9 FL (7.0-11.0); PLATELET COUNT 278 TH/MM3 (150-450); RED BLOOD COUNT 3.97 MIL/MM3 (4.00-5.30); RED CELL DISTRIBUTION WIDTH 16.9 % (11.6-17.2); WHITE BLOOD COUNT 6.8 TH/MM3 (4.0-11.0)
[2017-08-02 12:00] VITALS: BP 121/57; PULSE 72; RESP 16; TEMP 98.1; O2SAT 94
[2017-08-02] MEDS ORDERED: NAPROXEN 375 MG TAB PO PRN (12:45)
--- NOTE | 2017-08-02 13:50 | HHI.HCPN ---
Reason for visit a. To assist with evaluation and management of symptoms including: Confusion , pain, debility b. To assist medical decision maker(s) with: better understanding of current medical conditions; weighing benefits/burdens of medical treatment options; making medical treatment decisions. . Subjective/Interval History Patient is a 81-year-old female with depression, questionable TIA, CAD, chronic back pain, degenerative disc disease, hypertension and diabetes who presented to [facility] ED via EMS on 07/30/2017 for evaluation of altered mental status and recent falls. The patient had ST elevations noted in V2 and V3 with Q waves in lead 2, 3, aVF, V2, and V3. Patient denied chest pain. Dr. Bryant from emergency department discussed the EKG with the on-call restaurant managing partner, Dr. Hernandez. Per chart documentation the patient had an MO, subacute, possibly the last several weeks. Patient did have evidence of trauma so she underwent a workup for possible bleeding intra-abdominally and/or and intracranially. CT of the brain was unremarkable for acute hemorrhage. CT abdomen/pelvis revealed healing right acetabulum and right inferior pubic rami. Since there was no evidence of bleeding, the patient received aspirin orally. X-ray of the foot and chest were unremarkable. Patient was admitted for further evaluation (specifically cardiac) and medical management. She was admitted to the intensive care unit overnight secondary to her altered mental status and low sodium of 121. Follow-up visit for symptom management and clarification of medical treatment goals. Patient seen in room 1531. Patient remains confused, much of her conversation is nonsensical. Hemodynamically stable. Blood cultures remain negative 3 days. Palliative care met with patient's spouse and sister on 08/01/2017 to discuss patient's hospital course and overall prognosis. They state the patient was hospitalized sometime within the past 6 months; upon discharge the patient was transferred to [facility], and the family feels the patient improved with rehabilitation. The patient's believes the patient's confusion is due to undiagnosed dementia, however her sister is concerned the patient may be taking her medications inappropriately. Sister, Denise, reports patient has a history of narcotic abuse. She alleges the patient took > 100 sleeping pills ( Unisom) in a 7 day time frame. Altered mentation is likely multifactorial. Discussed rehabilitation vs. custodial placement vs. home with private caregiver. Hospice was introduced. Family would like patient to be transferred to SNF (preferably rehab) when stable, further medical treatment goals will depend on whether or not the patient tolerates rehab. If patient does return home she will need to have someone to manage her medication for her, and the family is aware of this. [facility] has accepted the patient per correctional counselor/case manager's report. Copies of written advanced directives were received today including financial POA, healthcare surrogate designation form and living will. They are accessible in the patient's patient's chart and have been brought to HIM to be scanned into the patient's EMR. Patient sister (Denise) has been designated as the primary healthcare surrogate decision maker and her spouse (Luis) is the alternate HCS decision-maker. . . Family/friend interactions See interval history Advance Directives Advance Directive Specifics Date completed: 01/28/2015 . Health Care Surrogate(s): Patient has designated her sister, Denise Unger, as her healthcare surrogate decision maker. Patient's , Blas Ascencio, is the alternate healthcare surrogate decision maker. . Documented care wishes: Patient completed a living will on January 28, 2015 which states the patient would not want life prolonging procedures provided and/or continued in the event that she was incapacitated AND had either a terminal condition, an end- stage condition or a was in a persistent vegetative state while her treating physician and another consulting physician had determined there is no reasonable medical probability of her recovery. Patient also specified that she would want nutrition and hydration withheld or withdrawn when the application of such procedures would serve only to prolong artificially the process of dying. Significant change in goals: Patient has been accepted by [facility] for rehab. . Objective Vital Signs Date Time Temp Pulse Resp B/P (MAP) Pulse Ox O2 Delivery O2 Flow Rate FiO2 08/02/17 08:00 97.4 90 16 134/63 (86) 95 08/02/17 04:00 98.1 82 18 135/65 (88) 92 08/02/17 02:00 Room Air 08/02/17 00:00 97.5 82 17 126/66 (86) 93 08/02/17 00:00 80 08/01/17 22:21 81 18 117/60 (79) 93 08/01/17 21:15 89 20 125/58 (80) 95 08/01/17 20:00 98.1 72 21 99/52 (68) 95 08/01/17 20:00 75 08/01/17 16:26 97.7 70 18 105/55 (72) 94 08/01/17 15:51 69 Intake & Output 08/02/17 08/02/17 07:00 19:00 Output Total 300 ml Balance -300 ml Output Urine Total 300 ml # Bowel Movements 0 . Physical Exam CONSTITUTIONAL/GENERAL: This is a frail appearing, elderly female patient who is confused. TUBES/LINES/DRAINS: PIV SKIN: Ecchymoses on upper extremities; skin tear on left lower extremity as well as bruising on the lateral distal left foot. Chronic skin changes noted to the anterior aspect the lower extremity is bilateral. Skin temperature appropriate. Not diaphoretic. HEAD: Atraumatic. Normocephalic. EYES: Pupils equal and round and reactive. Extraocular motions intact. No scleral icterus. No injection or drainage. Fundi not examined. ENT: Hearing grossly normal. Nose without bleeding or purulent drainage. NECK: Trachea midline. Supple, nontender. No palpable thyroid enlargement or nodularity. CARDIOVASCULAR: Regular rate and rhythm without murmurs, gallops, or rubs. No JVD. Peripheral pulses symmetric. RESPIRATORY/CHEST: Symmetric, unlabored respirations. Clear to auscultation. Breath sounds equal bilaterally. No wheezes, rales, or rhonchi. GASTROINTESTINAL: Abdomen soft, non-tender, nondistended. No guarding. Bowel sounds present. GENITOURINARY: Without palpable bladder distension. Yin catheter in place. MUSCULOSKELETAL: Extremities without clubbing, cyanosis, or edema. No mottling or clubbing. LYMPHATICS: No palpable cervical or supraclavicular adenopathy. NEUROLOGICAL: Awake, eyes are open. Patient answers simple questions but remains confused. Much of speech is nonsensical moving all extremities 4. Follows simple commands. PSYCHIATRIC: No obvious anxiety/depression. No apparent hallucinations or other psychotic thought process. . Diagnostic Tests Laboratory Laboratory Tests Test 07/30/17 15:04 07/30/17 19:16 07/31/17 01:57 07/31/17 04:22 Activated Partial Thromboplast Time 25.0 SEC (24.3-30.1) 24.3 SEC (24.3-30.1) Sodium Level 125 MEQ/L (136-145) 130 MEQ/L (136-145) 130 MEQ/L (136-145) White Blood Count 5.8 TH/MM3 (4.0-11.0) Red Blood Count 3.54 MIL/MM3 (4.00-5.30) Hemoglobin 10.6 GM/DL (11.6-15.3) Hematocrit 31.5 % (35.0-46.0) Mean Corpuscular Volume 89.0 FL (80.0-100.0) Mean Corpuscular Hemoglobin 29.9 PG (27.0-34.0) Mean Corpuscular Hemoglobin Concent 33.6 % (32.0-36.0) Red Cell Distribution Width 16.8 % (11.6-17.2) Platelet Count 244 TH/MM3 (150-450) Mean Platelet Volume 7.6 FL (7.0-11.0) Neutrophils (%) (Auto) 62.9 % (16.0-70.0) Lymphocytes (%) (Auto) 25.3 % (9.0-44.0) Monocytes (%) (Auto) 9.8 % (0.0-8.0) Eosinophils (%) (Auto) 1.8 % (0.0-4.0) Basophils (%) (Auto) 0.2 % (0.0-2.0) Neutrophils # (Auto) 3.6 TH/MM3 (1.8-7.7) Lymphocytes # (Auto) 1.5 TH/MM3 (1.0-4.8) Monocytes # (Auto) 0.6 TH/MM3 (0-0.9) Eosinophils # (Auto) 0.1 TH/MM3 (0-0.4) Basophils # (Auto) 0.0 TH/MM3 (0-0.2) CBC Comment DIFF FINAL Differential Comment Prothrombin Time 10.1 SEC (9.8-11.6) Prothromb Time International Ratio 1.0 RATIO Blood Urea Nitrogen 22 MG/DL (7-18) Creatinine 0.83 MG/DL (0.50-1.00) Random Glucose 91 MG/DL (74-106) Total Protein 5.5 GM/DL (6.4-8.2) Albumin 2.5 GM/DL (3.4-5.0) Calcium Level 7.6 MG/DL (8.5-10.1) Phosphorus Level 1.9 MG/DL (2.5-4.9) Magnesium Level 1.6 MG/DL (1.5-2.5) Alkaline Phosphatase 64 U/L (45-117) Aspartate Amino Transf (AST/SGOT) 29 U/L (15-37) Alanine Aminotransferase (ALT/SGPT) 15 U/L (10-53) Total Bilirubin 0.6 MG/DL (0.2-1.0) Potassium Level 3.6 MEQ/L (3.5-5.1) Chloride Level 98 MEQ/L (98-107) Carbon Dioxide Level 22.9 MEQ/L (21.0-32.0) Anion Gap 9 MEQ/L (5-15) Estimat Glomerular Filtration Rate 66 ML/MIN (>89) Test 07/31/17 14:25 07/31/17 21:01 08/01/17 02:34 08/01/17 10:59 Sodium Level 131 MEQ/L (136-145) 130 MEQ/L (136-145) 132 MEQ/L (136-145) 130 MEQ/L (136-145) Thyroid Stimulating Hormone 3rd Gen 1.600 uIU/ML (0.358-3.740) Test 08/01/17 15:12 08/01/17 21:34 08/02/17 09:27 Sodium Level 133 MEQ/L (136-145) 134 MEQ/L (136-145) White Blood Count 6.8 TH/MM3 (4.0-11.0) Red Blood Count 3.97 MIL/MM3 (4.00-5.30) Hemoglobin 11.8 GM/DL (11.6-15.3) Hematocrit 35.6 % (35.0-46.0) Mean Corpuscular Volume 89.6 FL (80.0-100.0) Mean Corpuscular Hemoglobin 29.6 PG (27.0-34.0) Mean Corpuscular Hemoglobin Concent 33.1 % (32.0-36.0) Red Cell Distribution Width 16.9 % (11.6-17.2) Platelet Count 278 TH/MM3 (150-450) Mean Platelet Volume 6.9 FL (7.0-11.0) . Result Diagram: 08/02/1792608/01/172133 Assessment and Plan Disease Oriented Problem List: (1) Hyponatremia (2) NSTEMI (non-ST elevated myocardial infarction) (3) Acute kidney injury (4) Fracture of right ankle, lateral malleolus (5) Chronic pain syndrome Symptom Scale: (1) Confusion 0-10 Scale: Unable to quantify (2) Pain 0-10 Scale: Unable to quantify (3) Debility 0-10 Scale: Unable to quantify Pertinent Non-Medical Issues Psychosocial: Patient is . She had 2 children. One daughter is living and one child is . Spiritual: Taoism shreya Legal: Per [place] statutes, in the absence of written advanced directives healthcare proxy decision making falls to the patient's Ethical issues impacting care: No known ethical issues impacting care. . Important Contacts Denise Unger, sister: [phone] or [phone] Kristi, Sister: [phone] Blas Ascencio, spouse: [phone] (SPOUSE IS PICAYUNE AND HAS DIFFICULTY COMMUNICATING VIA TELEPHONE; HE REQUEST THAT HIS COLETTE BE CALLED FIRST) . Prognosis Patient is an elderly female with multiple comorbid conditions who has experienced a recent, acute decline as evidenced by progressively increased confusion as well recurrent falls with injury. It is suspected that the patient may have had a recent, subacute MO. Given patient's age and poor functional status in addition to her complex medical history, she is at risk for ongoing decline and current medical recommendations are conservative. . Code Status: Full Code Plan * FULL CODE * Patient completed a living will on January 28, 2015 which states the patient would not want life prolonging procedures provided and/or continued in the event that she was incapacitated AND had either a terminal condition, an end -stage condition or a was in a persistent vegetative state while her treating physician and another consulting physician had determined there is no reasonable medical probability of her recovery. Patient also specified that she would want nutrition and hydration withheld or withdrawn when the application of such procedures would serve only to prolong artificially the process of dying. * Patient completed a living will on January 28, 2015 which states the patient would not want life prolonging procedures provided and/or continued in the event that she was incapacitated AND had either a terminal condition, an end -stage condition or a was in a persistent vegetative state while her treating physician and another consulting physician had determined there is no reasonable medical probability of her recovery. Patient also specified that she would want nutrition and hydration withheld or withdrawn when the application of such procedures would serve only to prolong artificially the process of dying. * Palliative care met with patient's spouse and sister on 08/01/2017 to discuss patient's hospital course and overall prognosis. They state the patient was hospitalized sometime within the past 6 months; upon discharge the patient was transferred to [facility], and the family feels the patient improved with rehabilitation. The patient's believes the patient's confusion is due to undiagnosed dementia, however her sister is concerned the patient may be taking her medications inappropriately. Sister, Denise, alleges the patient took 100 apsb-nsw-socvegi sleeping pills (Unisom) within a 7 day period. Altered mentation is likely multifactorial. * Discussed rehabilitation vs. custodial placement vs. home with private caregiver. Hospice was introduced. Family would like patient to be transferred to SNF (preferably rehab) when stable, further medical treatment goals will depend on whether or not the patient tolerates rehab. If patient does return home she will need to have someone to manage her medication for her, and the family is aware of this. [facility] the patient. * Spouse (Luis Ascencio) is P[place]AYUNE and has difficulty communicating via telephone. His [id number]-irf (Denise) is the designated healthcare surrogate- her contact information is [phone] or [phone]. Another sister, Kristi, lives locally and can be reached at at [phone] * Discussed patient with bedside nurse (Carmenza) to see and case management. * Symptom management: = Debility: Patient has a frail, cachectic appearance. She has a history of recent falls. Imaging showed healing pubic rami fractures and a nondisplaced right distal fibula fracture. Orthopedics was consulted and recommended nonoperative treatment at this time and physical therapy. Patient may weight-bear as tolerated on right leg when fracture boot is in place. Physical therapy following = Pain: Patient initially reporting pain in lower extremities bilaterally, right >left. Pain was exacerbated with movement. Imaging showed healing pubic rami fractures and a nondisplaced right distal fibula fracture. Patient has a history of recent falls as evidence multiple areas of bruising. Patient reporting left lower extremity pain on exam today. Patient had PRN orders for IV morphine and oral [place] but the family requested these be discontinued because the patient has a history of abusing narcotics. Naprosyn 375mg PO was ordered every 8 hours PRN for pain rated 5-10. = Confusion: Multifactoral. Contributing factors may include electrolyte imbalances, circulatory disorders, dementia, depression, medication related. CT of the brain was unremarkable for acute processes, atrophy and chronic small vessel ischemic changes were noted. Continue to monitor. * Palliative care will continue to follow this patient throughout her hospitalization to establish trust, assist with symptom management and clarification of medical treatment goals. . Attestation To help prompt me to consider important information that might be impacting today's encounter and assessment, information from prior notes written by myself or my colleagues may have been "brought forward" into today's note. My signature on this note, however, is an attestation that I personally performed the exam, history, and/or decision-making noted today, and, unless otherwise indicated, the interactions with patient, family, and staff as well as the review of records all occurred today. I also attest that the listed assessment and stated plan reflect my best clinical judgment today based on the combination of historical information, prior notes, and today's exam/ interactions. When time spent is documented, it refers only to time spent today by the signer, or if indicated, combined time spent today by collaborating physician/nurse practitioner. . Rosalina Arroyo Aug 02, 2017 13:50
[2017-08-02] MEDS ORDERED: PANT20 PO (13:53)
[2017-08-02] MEDS ORDERED: ACET325T15 PO (13:53)
[2017-08-02] MEDS ORDERED: NAPR-855 PO (13:53)
[2017-08-02] MEDS ORDERED: ATOR40TA16 PO (13:56)
[2017-08-02] MEDS ORDERED: PLAV75TA29 PO (13:56)
--- NOTE | 2017-08-02 13:56 | HHI.DS ---
Discharge Summary Admission Date Jul 30, 2017 at 4:14 am Discharge Date: Aug 02, 2017 Admitting Diagnosis NSTEMI, hyponatremia, right ankle fracture, altered mental status (1) Metabolic encephalopathy ICD Code: G93.41 - Metabolic encephalopathy Diagnosis: Principal (2) Chronic pain syndrome ICD Code: G89.4 - Chronic pain syndrome Status: Acute (3) Hyponatremia ICD Code: E87.1 - Hypo-osmolality and hyponatremia Procedures 07.31.2017 Echocardiogram The left ventricular systolic function is moderately reduced with an estimated ejection fraction in the range of 40-45%. Apical akinesis. Normal left ventricular size. Mild concentric left ventricular hypertrophy. Posterior mitral valve leaflet prolapse. Moderate mitral valve regurgitation. Mitral annular calcification is present. Diffuse calcification of the aortic valve. Mild to moderate aortic valve stenosis. Aortic valve area is 0.87 cm. Aortic valve mean gradient is 10 mmHg. Brief History - From Admission 81-year-old female presents for altered mental status. According EMS the patient was at home during the day, and her trailer, when family noticed that she was sleeping more than normal. The patient had also fallen several times and had bruising to the left foot, right ankle, mid right back. EMS states that family noticed that the patient had an altered mental status. Upon arrival the patient denied any complaints, however, she is only oriented to person and location, not month, year, or marine engine mechanic. She is a poor and somewhat limited historian. The patient had ST elevations noted in V2 and V3 with Q waves in lead 2, 3, aVF, V2, and V3. Dr. Bryant from emergency department discussed the EKG with the on-call mending carrier, Dr. Hernandez. Per chart documentation the patient had an MD, subacute, possibly the last several weeks. She is currently chest pain-free and has evidence of trauma, and it was agreed the patient would receive aspirin but we will hold anticoagulants including Lovenox and heparin. CBC/BMP: 08/02/17 0927 08/01/17 3198 Significant Findings Laboratory Tests Test 07/30/17 15:04 07/30/17 19:16 07/31/17 01:57 07/31/17 04:22 Sodium Level 125 MEQ/L (136-145) 130 MEQ/L (136-145) 130 MEQ/L (136-145) Red Blood Count 3.54 MIL/MM3 (4.00-5.30) Hemoglobin 10.6 GM/DL (11.6-15.3) Hematocrit 31.5 % (35.0-46.0) Monocytes (%) (Auto) 9.8 % (0.0-8.0) Blood Urea Nitrogen 22 MG/DL (7-18) Total Protein 5.5 GM/DL (6.4-8.2) Albumin 2.5 GM/DL (3.4-5.0) Calcium Level 7.6 MG/DL (8.5-10.1) Phosphorus Level 1.9 MG/DL (2.5-4.9) Estimat Glomerular Filtration Rate 66 ML/MIN (>89) Test 07/31/17 14:25 07/31/17 21:01 08/01/17 02:34 08/01/17 10:59 Sodium Level 131 MEQ/L (136-145) 130 MEQ/L (136-145) 132 MEQ/L (136-145) 130 MEQ/L (136-145) Test 08/01/17 15:12 08/01/17 21:34 08/02/17 09:27 Sodium Level 133 MEQ/L (136-145) 134 MEQ/L (136-145) Red Blood Count 3.97 MIL/MM3 (4.00-5.30) Mean Platelet Volume 6.9 FL (7.0-11.0) Imaging Last Impressions Head CT 07/30/17 0000 Signed Impressions: Service Date/Time: Sunday, July 30, 2017 03:20 - CONCLUSION: 1. No acute hemorrhage, mass or evidence of infarction. 2. Atrophy and chronic small vessel ischemic change. Dayne Jordan MD Foot X-Ray 07/30/17 0000 Signed Impressions: Service Date/Time: Sunday, July 30, 2017 02:13 - CONCLUSION: Negative limited two-view exam . Dayne Jordan MD Chest X-Ray 07/30/17 0000 Signed Impressions: Service Date/Time: Sunday, July 30, 2017 02:05 - CONCLUSION: No acute disease. Dayne Jordan MD Ankle X-Ray 07/30/17 0000 Signed Impressions: Service Date/Time: Sunday, July 30, 2017 02:11 - CONCLUSION: 1. Subtle nondisplaced fracture through the distal fibula. Dayne Jordan MD Abdomen/Pelvis CT 07/30/17 0000 Signed Impressions: Service Date/Time: Sunday, July 30, 2017 03:24 - CONCLUSION: 1. No acute visceral injury. 2. Healing fractures of the anterior right acetabulum and right inferior pubic rami. Dayne Jordan MD PE at Discharge GENERAL: Alert, NAD. SKIN: Warm and dry. HEAD: Normocephalic. EYES: No scleral icterus. No injection or drainage. NECK: Supple, trachea midline. No JVD or lymphadenopathy. CARDIOVASCULAR: Regular rate and rhythm without murmurs, gallops, or rubs. RESPIRATORY: Breath sounds equal bilaterally. No accessory muscle use. GASTROINTESTINAL: Abdomen soft, non-tender, nondistended. MUSCULOSKELETAL: No cyanosis, or edema. BACK: Nontender without obvious deformity. No CVA tenderness. Pt update on day of discharge Patient is doing well. Alert, oriented x 3, NAD. No acute concerns. Hospital Course Metabolic Encephalopathy in the setting of acute hyponatremia (Na 121) - resolved. Coronary artery disease - Subacute MD - Continue aspirin and Plavix - Cardiology consultation --> medical management. - Metoprolol tartrate 100mg Daily. - Atorvastatin 40mg QHS. Hyponatremia - Na 121 improved to 134 Hypertension - Metoprolol 100mg Qday. - Norvasc 10mg Qday Depressions - Citalopram 40mg Qday. Hypothyroidism - Levothyroxine 50mcg Qday. Right lateral malleolus fracture - orthopedic surgery recs non-op management. Boot all the time. WBAT. Outpt F/U in 10-14 days. I had a long discussion with patient's family who reports that patient is heavily addicted to pain medications as well sleep aids. They requests that pain is controlled only with non-narcotic medications. If absolutely required, consider Tramadol only. Pt Condition on Discharge: Good Discharge Disposition: Discharge to SNF Discharge Time: > 30 minutes Discharge Instructions DIET: Follow Instructions for: Heart Healthy Diet Activities you can perform: Regular-No Restrictions Other Activity Instructions: -maintain boot at all times -WBAT while wearing boot -as long as maintains position, will plan for nonop treatment -f/u with [facility] or [facility] in 10-14 days Follow up Referrals: SNF/[facility] New Medications: Acetaminophen (Eq Acetaminophen) 325 Mg Tab 650 MG PO Q6H PRN for fever, headache, pain 1-4, #60 TAB Atorvastatin (Atorvastatin) 40 Mg Tab 40 MG PO HS for Cholesterol Management, #90 TAB 3 Refills Clopidogrel (Plavix) 75 Mg Tab 75 MG PO DAILY for Blood Clot Prevention, #90 TAB 3 Refills Naproxen (Naproxen) 375 Mg Tab 375 MG PO Q8H PRN for PAIN SCALE 5 TO 10, #30 TAB Pantoprazole (Protonix) 20 Mg Tab 20 MG PO DAILY for Reflux, #30 TAB 11 Refills Continued Medications: Amlodipine (Amlodipine) 10 Mg Tab 10 MG PO DAILY for Blood Pressure Management, #30 TAB 0 Refills Aspirin (Aspirin) 81 Mg Chew 81 MG CHEW DAILY, TAB 0 Refills Biotin (Biotin) 5 Mg Cap 5 MG PO for Nutritional Supplement, #1 BOTTLE 0 Refills Citalopram (Citalopram) 40 Mg Tab 40 MG PO DAILY for Control Depression, #30 TAB 0 Refills Gabapentin (Gabapentin) 300 Mg Cap 300 MG PO BID, #60 CAP 0 Refills Levothyroxine (Levothyroxine) 50 Mcg Tab 50 MCG PO DAILY for Thyroid, #30 TAB 0 Refills Metformin (Metformin) 500 Mg Tab 500 MG PO DAILY for Blood Sugar Management, #30 TAB 0 Refills With a meal Metoprolol Tartrate (Metoprolol Tartrate) 100 Mg Tab 100 MG PO DAILY, #30 TAB 0 Refills Polyethylene Glycol 3350 Powder (Miralax Powder) 17 Gm Powd 17 GM PO DAILY for Constipation, #1 CAN 0 Refills Mix and dissolve one measuring cap-ful (17 grams) in water or juice. Discontinued Medications: Hydrocodone-Acetaminophen (Hydrocodone-Acetaminophen) 10-325 mg Tab 1 TAB PO Q6H PRN for PAIN, TAB 0 Refills Maru Hay DO Aug 02, 2017 13:56
[2017-08-02] MEDS ORDERED: FAMOTIDINE 20 MG TAB PO SCH (21:00)
[2017-08-03] MEDS ORDERED: PANTOPRAZOLE SOD 20 MG DELAYED RELEASE TAB PO SCH (09:00)
== END 2017-08-02 18:28 | DRG 280 ==
LOC: NEPE 01:08 → NEDA 04:14 → N03B 15:55 → N05A 07-31 17:01
PROVIDERS: ADMIT Hospitalist; ATTEND Hospitalist
DX: I21.4 Non-ST elevation (NSTEMI) myocardial infarction (principal); G93.41 Metabolic encephalopathy; N17.9 Acute kidney failure, unspecified; S32.591A Other specified fracture of right pubis, initial encounter for closed fracture; E87.1 Hypo-osmolality and hyponatremia; E11.40 Type 2 diabetes mellitus with diabetic neuropathy, unspecified; I34.0 Nonrheumatic mitral (valve) insufficiency; S82.64XA Nondisplaced fracture of lateral malleolus of right fibula, initial encounter for closed fracture; R00.0 Tachycardia, unspecified; F41.9 Anxiety disorder, unspecified; S82.831A Other fracture of upper and lower end of right fibula, initial encounter for closed fracture; M54.9 Dorsalgia, unspecified; G89.4 Chronic pain syndrome; I10 Essential (primary) hypertension; I25.10 Atherosclerotic heart disease of native coronary artery without angina pectoris; E03.9 Hypothyroidism, unspecified; F32.9 Major depressive disorder, single episode, unspecified; I25.5 Ischemic cardiomyopathy; M81.0 Age-related osteoporosis without current pathological fracture; F11.10 Opioid abuse, uncomplicated; F17.210 Nicotine dependence, cigarettes, uncomplicated; Z79.82 Long term (current) use of aspirin; Z91.81 History of falling; I35.0 Nonrheumatic aortic (valve) stenosis; Z51.5 Encounter for palliative care; Z79.02 Long term (current) use of antithrombotics/antiplatelets
CPT/HCPCS: 70450; 71045; 73600; 73620; 74177; 80053; 80307; 81001; 82550; 82552; 83605; 83690; 83735; 83880; 84100; 84295; 84443; 84484; 85025; 85027; 85610; 85730; 87040; 93005; 93306; J2270; J7030; J7070; L2114; Q9967